=== PATIENT | male | born 1965 | race Caucasian/White ===

== ENCOUNTER 2024-06-19 07:54 | Inpatient (IN) | payer OTHER, SELFPAY ==
[2024-06-19] VITALS (17 sets, daily range): BP systolic 123–190; BP diastolic 83–112
--- NOTE | 2024-06-19 05:24 | ED.GENMED ---
History of Present Illness
General
Chief Complaint: Chest Pain
Source: patient, spouse and previous hospital records (Cardiac catheterization April 2019)
Exam Limitations: none
Time Seen by Provider: 06/19/24 05:23
Nursing documentation reviewed up to this point in time: agreed with
History of Present Illness
History of Present Illness:
This is a 58-year-old gentleman with history of paroxysmal atrial fibrillation, hypertension, GERD, benign brain tumor removal 2019, history of thromboembolism's, IVC filter in place and chronically maintained on Eliquis 5 mg twice daily.
He presents after waking at 3 AM with persistent substernal chest pain that radiates mildly to his back. No other associated symptoms, no history of similar episodes in the past. No aggravating or relieving factors.
His primary head knitting machine fixer is Dr. Lott.
Past History
Past History
ED Past Medical History: Arrthythmia (Paroxysmal atrial fibrillation), CAD, GERD, HTN, Hypercholesterolemia and Other (Meningioma removal 2019, thromboemboli chronically maintained on Eliquis; obstructive sleep apnea)
ED Past Surgical History: Cardiac (Cardiac catheterization April 2019. Showing branch vessel occlusive disease in the distal circumflex left-sided posterior descending artery. Nonobstructive LAD disease. Treated medically.) and Other (meningioma
removal 01/27)
Social History
Tobacco: Non-smoker
Alcohol: Occasional
Drug: None
Personal:
Living: with family
Employment: Employed
Family History
Family History: Other (Noncontributory)
Phy Exam
Physical Exam
Physical Exam:
GENERAL: 58-year-old gentleman appears his stated age, awake and alert, pleasant, appears in no acute distress.
EYE: anicteric
NECK: Supple, nontender, no meningismus, no significant adenopathy.
ENT: oral mucosa is moist. TM clear b/l, nares patent.
CARDIAC: Regular rate and rhythm. no murmur.
LUNGS: Clear breath sounds bilaterally, no acute respiratory distress, no wheezes/rales/rhonchi
ABDOMEN: Rotund, soft, nondistended, without focal tenderness, normoactive BS.
NEUROLOGICAL: Alert and oriented x3, no focal neuro deficits.
SKIN: Warm and dry, normal color, skin intact. No rash.
MUSCULOSKELETAL: No C/C/E. peripheral pulses are full and equal b/l. No palpable tenderness.
PSYCH: Normal and appropriate interaction.
Scores
Heart Score for Chest Pain Patients
STEMI patient?: Yes
Course
Orders/Labs/Results
Orders:
Orders
06/19/24 05:04
Electrocardiogram (*1) Urgent
Reason for Study: Chest Pain
06/19/24 05:05
EKG- Treatment ONCE
06/19/24 05:22
CMP [Comprehensive Metabolic Panel] Urgent
Complete Blood Count/With Diff Urgent
Troponin I Urgent
06/19/24 05:39
Electrocardiogram (*1) Urgent
Reason for Study: Chest Pain
EKG- Treatment ONCE
06/19/24 05:41
Fentanyl Citrate/Pf [Sublimaze] 100 mcg .ROUTE .STK-MED ONE
Heparin 10,000 units .ROUTE .STK-MED ONE
Heparin 1000 Units/500 ml [Heparin] 1,000 units in 500 ml .ROUTE .STK-MED
Heparin Sodium,Porcine/Ns/Pf [Heparin 2000 Units/1000 ml] 2,000 unit in 1,000 ml .ROUTE .STK-MED
Lidocaine HCl/Pf [Xylocaine-Mpf 1% Vial] 50 mg .ROUTE .STK-MED ONE
Midazolam HCl [Versed] 2 mg .ROUTE .STK-MED ONE
Nitroglycerin [Tridil] 1,500 mcg .ROUTE .STK-MED ONE
Verapamil Injectable [Isoptin/Verapamil Injection] 5 mg .ROUTE .STK-MED ONE
06/19/24 05:42
PT/INR [Prothrombin Time] Urgent
06/19/24 05:56
Nitroglycerin [Tridil] 1,500 mcg .ROUTE .STK-MED ONE
06/19/24 06:00
Aspirin Chewable [Low Strength Aspirin] 324 mg .ROUTE .STK-MED ONE
Heparin 5,000 units .ROUTE .STK-MED ONE
Ticagrelor [Brilinta] 180 mg .ROUTE .STK-MED ONE
Abnormal Lab Results
06/19/24 06/19/24
05:22 05:42
Absolute Monos (auto) 0.7 H 10^3/uL
(0.1-0.6)
Monocytes % 9.4 H %
(1.7-9.3)
PT 15.2 H Sec
(11.4-14.6)
Glucose 118 H mg/dl
(70-99)
Troponin I 0.171 H* ng/ml
06/19/24 05:22
06/19/24 05:22
Vital Signs
Initial and Last Documented VS:
Initial Vital Signs
Pulse Resp BP Pulse Ox
66 24 190/112 97
06/19/24 05:17 06/19/24 05:17 06/19/24 05:17 06/19/24 05:17
Last Documented Vital Signs
Pulse Resp BP Pulse Ox
46 16 123/83 96
06/19/24 05:45 06/19/24 05:45 06/19/24 05:37 06/19/24 05:45
MDM/Problems Addressed
Differential Diagnosis Includes:
Patient presents with chest pain, EKG shows STEMI, acute inferior wall FL with mild ST segment elevation inferiorly with mild reciprocal depression in V2. STEMI alert activated promptly after EKG obtained.
Standard STEMI alert treatment initiated including 324 mg chewable aspirin, 180 mg Brilinta�chewed, 5000 units IV heparin.
Sublingual nitroglycerin with moderate improvement in chest pain.
Patient noted to be significantly hypertensive. Hypertension improving with nitroglycerin.
Awaiting Territory Sales Manager Medical arrival.
Labs are pending.
Chronic conditions affecting care: HTN, CAD and Arrhythmia
Acute Exacerbation and/or Progression of Chronic Illness: CAD
*Pulse Oximetry
Patient hypoxic: no
*EKG
Interpreted by ED Provider?: Yes
Interpretation: abnormal
Comparison EKG: changes noted (ST segment elevation inferiorly new compared to previous EKG December 2020)
Rate: bradycardiac
Rhythm: sinus
[place]: left axis deviation
Interval: normal interval
QRS Pattern: normal QRS
Ischemia: ST elevation (Inferior ST segment elevation consistent with STEMI/inferior wall FL)
*Welding Systems And Equipment Repairer Interpretation
Rate: bradycardiac
Rhythm: sinus
*Critical Care Note
Total Time (30-74mins, 75-104mins- exclusive of procedures): 30
comment:
Critical care statement: A total of 30 minutes of critical care time was provided for this patient. This includes management of unstable vital signs, evaluation of the patient at bedside, reviewing the patient's pertinent medical records, discussion
with consultants, review of old EKGs and review of pertinent medical records. This time with separate from time utilized to perform the aforementioned documented procedures
Update Note
Update Note:
Patient is chest pain free after 2 sublingual nitroglycerin.
Hypertension Has normalized. BP currently 123/83.
Repeat EKG shows resolution of ST segment elevation inferiorly.
Interventionalist at bedside, will proceed to Territory Sales Manager Medical.
ED Attending Note
-
Portions of this chart may have been created with voice recognition software.� Occasional wrong word or��sound alike� substitutions may have occurred due to the inherent limitations of voice recognition software.
Discharge Plan
Departure
Patient Disposition: Admit
Date of Disposition: 06/19/24
Time of Disposition: 05:34
Admit to: crime laboratory analyst
Admit to doctor: Kit
Presentation/result/management discussed w/ accepting MD/DO: cardiology
Condition: Serious
Discharge Problem:
ST elevation (STEMI) myocardial infarction
Interventions
Interventions:
*Risk Screen - Suicide Last Done: 06/19/24 05:08
*General Assessment Last Done: 06/19/24 05:31
*Neglect/Abuse Screening Last Done: 06/19/24 05:08
*ED- Fall Risk Assessment Last Done: 06/19/24 05:31
*ED COVID-19 Vaccine History Last Done: 06/19/24 05:31
*Nursing Disposition Last Done: 06/19/24 05:48
ED- Cardiac Assessment Last Done: 06/19/24 05:32
Discharge Date and Time
Discharge Date/Time: 06/19/24 05:45
[2024-06-19 05:31] LABS: % Basophils 0.9 % (0-2); % Eosinophils 2.6 % (0-6); % Immature Granulocytes 0.4 % (0-0.5); % Lymphocytes 24.8 % (20.5-51.1); % Monocytes 9.4 % (1.7-9.3); % Neutrophils 61.9 % (42.2-75.2); Absolute Basophils 0.1 10^3/uL (0-0.2); Absolute Eosinophils 0.2 10^3/uL (0-0.7); Absolute Lymphocytes 1.9 10^3/uL (1.2-3.4); Absolute Monocytes 0.7 10^3/uL (0.1-0.6); Absolute Neutrophils 4.7 10^3/uL (1.4-6.5); Hematocrit 44.9 % (39.0-52.0); Hemoglobin 15.4 g/dL (13.0-18.0); Mean Corp Hgb Conc. 34.3 g/dL (33.0-37.0); Mean Corpuscular Hgb 28.9 pg (27.0-31.0); Mean Corpuscular Volume 84.4 fL (80.0-94.0); Mean Platelet Volume 9.7 fL (7.4-10.4); Nucleated Red Blood Cells % 0 % (-); Platelet Count 231 10^3/uL (130-400); Red Blood Cell Count 5.32 10^6/uL (4.70-6.10); Red Cell Dist. Width 14.3 % (11.5-14.5); White Blood Cell Count 7.6 10^3/uL (4.8-10.8)
[2024-06-19 06:00] LABS: ALT (SGPT) 18 U/L (0-50); AST (SGOT) 29 U/L (17-59); Albumin 4.6 g/dl (3.5-5.0); Alkaline Phosphatase 47 U/L (38-126); Blood Urea Nitrogen 16 mg/dl (9-20); Calcium 9.7 mg/dl (8.4-10.2); Carbon Dioxide 26 mmol/L (22-30); Chloride 103 mmol/L (98-107); Glucose 118 mg/dl (70-99); Potassium 3.8 mmol/L (3.5-5.1); Sodium 142 mmol/L (135-145); Total Bilirubin 0.9 mg/dl (0.2-1.3); Total Protein 8.1 g/dl (6.3-8.2); eGFR > 60.00
[2024-06-19 06:05] LABS: INR 1.17; PT 15.2 Sec (11.4-14.6)
[2024-06-19 06:15] LABS: Troponin I 0.171 ng/ml
--- NOTE | 2024-06-19 08:24 | PTCARENOTE ---
Received patient from the medical lab tech instructor after LHC. Radial band in place right wrist with pulse ox of 98%. SB on the monitor, with HR in the 40's. Patient denies any chest pain or sob. Monitoring VS, call cowan in reach, reviewed post cath orders. at
the bedside.
[2024-06-19] MEDS: KCL 20 MEQ PO (09:13)
[2024-06-19] MEDS: BENICAR 40 MG PO (09:13)
[2024-06-19] MEDS: INSPRA 25 MG PO (09:14)
[2024-06-19] MEDS: NSS 1000 IV (09:20)
--- NOTE | 2024-06-19 11:12 | ITS.CL.PN ---
Spaghetti Machine Operator - Procedure Note
Procedure
Procedure Note:
CARDIAC CATHETERIZATION REPORT
Date of Procedure: 06/19/2024
Referring: Dr. Ofelia Ramirez DO
Indication: Inferior STEMI
PROCEDURE(S)
1. coronary angiography
2. POBA of the OM4
3. Attempted PCI with MAITE for acute AK to OM4
ACCESS: 6F right radial artery (closure: radial band)
CATHETERS
1. 6F AL1
2. 6F JL5
3. 6F EBU 4.5 guide
MODERATE SEDATION: 60 minutes of moderate sedation was utilized. An independent medical device engineer was present to assist with and help manage the patient's level of consciousness and physiologic status.
CORONARY ANGIOGRAPHY
Dominance: Left dominant.
LM: Large with mild disease.
LAD: Large vessel giving rise to a small D1, medium caliber D2, and small D3. There is diffuse moderate disease in the proximal vessel as well as a tubular 60 to 70% stenosis in the mid vessel.
LCx: Large vessel giving rise to a large OM1, large OM2, medium caliber OM3, and small OM4. There is diffuse mild to moderate disease as well as a severe lesion leading into the ostium of OM4/LPDA with dye staining suggesting this to be the culprit
for the patient's presentation.
RCA: Small nondominant vessel with diffuse mild disease proximally.
PCI with balloon angioplasty to OM4
Additional heparin was given to achieve ACT greater than 300. A Runthrough wire was advanced to the distal OM4. With the aid of a 6 Serbian Guideliner, initial balloon angioplasty was performed with a 2.0 x 12 mm semi compliant balloon followed by
2.5 x 12 mm semi compliant balloon. A 2.5x18 mm MAITE would not be advanced past the lesion despite aggressive deep positioning of the guideliner. A 2.25x12 mm NC balloon was advanced and despite aggressive guide liner positioning also would not
advance past the lesion. At this point, the patient remained chest pain free, as he had been since receiving nitroglycerine in the ED. Given the patient's lack of chest pain, the small territory involved, essentially stable vessel appearance at the
culprit site compared to 5 years prior, and TIMI3 flow on angiography after POBA, the decision was made to stop further attempts at stent delivery as to avoid possible iatrogenic injury with aggressive guide liner positioning and continue medical
management for ACS. The wire and guide were removed and a TR band placed.
RADIATION: dose 2139 mGy; DAP 183 Gy*cm2; fluoroscopy time 27.1 min
CONCLUSIONS
1. Coronary artery disease as described with culprit severe stenosis of the OM4/LPDA and progressive non-culprit disease in the LAD
1. POBA of the OM4/LPDA for inferior STEMI with holiness of TIMI3 flow
2. Aborted PCI with MAITE to OM4/LPDA owing to difficulty in delivering stent
RECOMMENDATIONS
1. Transition to ASA/Plavix with Plavix load tomorrow morning. Hold any additional ticagrelor.
2. Continue heparin, hold apixaban for now.
3. As discussed with Dr. Jb Lott (primary unishear operator), plan for possible re-attempt PCI to OM4 +/- LAD PCI on 06/21.
4. Hold beta ananya for now given bradycardia, reintroduce other home cardiac meds as tolerated
5. High intensity statin for goal LDL<55 and aggressive risk factor modificaiton
6. Cardiac rehab as outpatient
Copy to: Dr. Jb Lott MD (unishear operator)
Signed: Piyush Pantoja MD, PhD
--- NOTE | 2024-06-19 11:18 | HPS.HSE ---
Family Physician
-
PCP: Anton Brooks MD
CDY: Jeffery Lott MD
Chief Complaint
-
chest pain
History of Present Illness
58 y/o, PMH sig for CAD, prior cath 2019 with 80% prox LPDA and 80% distal LAD disease that was managed with medical therapy. Also with PAF on eliquis, HTN, GERD, severe SHAYY/CPAP, prior PE w/IVC filter, obesity, benign brain tumor removal (01/2020)
with subsequent XRT.
Presented to ER after waking at 3AM with persistent SSCP radiating to back, no dyspnea/palpitation/nausea. Initial EKG with inferior ST elevations. STEMI alert called. Given SL NTG, 324mg aspirin, 180mg brilinta and 5000u heparin. BP
significantly elevated on arrival 190/110s, improved with SL NTG. Transferred to earth science laboratory technician urgently.
Medical History
Past Medical History
Past Medical History: Reports Arrhythmia (Paroxysmal AFib), CAD (80% prox LPDA and 80% distal LAD (medical management)), Cancer (Benign intracranial meningioma, s/p surgery (2019) and XRT (2020)), GERD, HTN and Hypercholesterolemia (statin
intolerant)
Additional Past Medical History:
Severe sleep apnea/CPAP, Pulmonary embolism, s/p IVC filter, obesity
Past Surgical History: Reports Brain (Tumor removal (2019))
Additional Past Surgical History:
Bilateral cateract extraction
Social History
Tobacco: Non-smoker
Alcohol: Occasional
Drug: None
Personal:
Living: With Family
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
Family History
Family History: CAD, Cancer (Colon), Diabetes, Hypertension and Other (CVA, HLD)
Allergies / Home Medications
Allergies reflects when Allergies were last updated in [facility].
Home Medications with original date entered in [facility]
Allergy/Medication List:
Allergies
Allergy/AdvReac Type Severity Reaction Status Date / Time
No Known Allergies Allergy Verified 06/19/24 05:17
Home Medications
�Medication �Instructions �Recorded
bimatoprost 0.01 % eye drops 1 drp BOTH EYES DAILY 04/11/19
([place])
hydrochlorothiazide 25 mg tablet 25 mg PO DAILY 04/11/19
olmesartan 40 mg tablet 40 mg PO DAILY 04/11/19
tadalafil 10 mg tablet 10 mg PO DAILYPRN PRN ED 04/11/19
apixaban 5 mg tablet 5 mg PO BID 06/19/24
eplerenone 25 mg tablet 25 mg PO DAILY 06/19/24
latanoprostene bunod 0.024 % eye 1 drp BOTH EYES DAILY 06/19/24
drops
nebivolol 5 mg tablet 5 mg PO DAILY 06/19/24
Review of Systems
-
Unable to obtain full review of systems at this time due to: Acuity (Urgently brought to earth science laboratory technician)
A 12 point ROS was completed and negative except as noted: Yes
Cardiac: Reports Chest Pain
Physical Exam
Vital Signs
Vital Signs
Temp Pulse Resp BP Pulse Ox
97.8 F 40 16 133/90 96
06/19/24 11:11 06/19/24 09:15 06/19/24 11:11 06/19/24 09:15 06/19/24 11:11
Physical Exam
General: Other (deferred d/t urgent nature of cath)
Laboratory Results
-
06/19/24 05:22
06/19/24 05:22
Laboratory Results
PT 15.2 Sec (11.4-14.6) H 06/19/24 05:42
INR 1.17 06/19/24 05:42
Total Bilirubin 0.9 mg/dl (0.2-1.3) 06/19/24 05:22
AST 29 U/L (17-59) 06/19/24 05:22
ALT 18 U/L (0-50) 06/19/24 05:22
Alkaline Phosphatase 47 U/L (38-126) 06/19/24 05:22
Troponin I 0.171 ng/ml H* 06/19/24 05:22
Data Reviewed
-
Medical Tests (Nuc Med, Echo, EKG etc): Image Personally Visualized and interpreted, Report Reviewed by me and Discussed with Physician
Lab Data: Labs Reviewed by me
Old Records: Reviewed
Impression/Plan
-
PCP: Anton Brooks MD
CDY: Jeffery Lott MD
58 y/o, PMH sig for CAD, prior cath 2019 with 80% prox LPDA and 80% distal LAD disease that was managed with medical therapy. Also with PAF on eliquis, HTN, GERD, severe SHAYY/CPAP, prior PE w/IVC filter, obesity, benign brain tumor removal (01/2020)
with subsequent XRT.
Presented to ER after waking at 3AM with persistent SSCP radiating to back, no dyspnea/palpitation/nausea. Initial EKG with inferior ST elevations. STEMI alert called. Given SL NTG, 324mg aspirin, 180mg brilinta and 5000u heparin. BP
significantly elevated on arrival 190/110s, improved with SL NTG. Transferred to earth science laboratory technician urgently.
C- radial access
tubular 60-70% mid LAD
severe ostial OM4/LPDA- s/p angioplasty only, aborted stent d/t difficulty with stent delivery
IMPRESSION/PLAN:
Acute inferior STEMI
this is a direct threat to life
s/p angioplasty only to distal OM4/LPDA
residual CAD to distal LAD- for staged iFR +/- PCI to LAD/poss OM4 this admission
brilinta load given- changing to plavix in AM with 600mg load and 75mg daily thereafter
heparin gtt starting today- will maintain until staged cath later this week
troponin 0.171- will trend to peak
echo today
bradycardia 40s with 1st AVB- will monitor tele and hold on BB for now
continue olmesartan 40/d- hold for SBP<90
cardiac rehab consult
followup with Dr. Lott at discharge
will monitor on tele for 48 hours
HLD, statin intolerant- myalgia/joint stiffness
will check lipid profile
try low dose crestor 5mg/d and t/c adding zetia
may need PCSK9 if does not tolerate statin at all
HTN- improved since arrival
hold off on hctz for now
will continue to monitor
PAF- [id number]
Heparin gtt for now
resume eliquis when stable
consider 1 week triple therapy w/asa, plavix, eliquis, then eliquis/plavix alone
GERD- add PPI
Severe SHAYY/CPAP- continue CPAP while here- tolerates well
Prior PE/IVC filter- on OAC
Benign brain tumor, s/p removal and XRT (2019)- stable
Obesity- weight loss encouraged
[2024-06-19 12:09] LABS: Troponin I 0.759 ng/ml
[2024-06-19] MEDS: HEPARIN 25000 UNITS/250 ML IV (13:32)
--- NOTE | 2024-06-19 14:10 | PTCARENOTE ---
Radial band is off from right wrist, dressing is dry and intact. IV heparin started as ordered. Patient is resting comfortably, SR/SB on the monitor, call cowan in reach.
--- NOTE | 2024-06-19 14:21 | CM ---
Chart reviewed. Patient is independent of ADLS, lives with his in a 2 STH, 1 SOSA, 0 DME. Plan is for the patient to go home. CM to follow
--- NOTE | 2024-06-19 14:24 | CM ---
Pricing on Brilinta through the patients [employer] prescription plan, ID# [id number], ph# [phone] is $132.
Looks like patient was placed on Plavix.
[2024-06-19 15:00] LABS: Glycohemoglobin (HgbA1c) 5.6 % (4.0-5.6)
[2024-06-19] MEDS: CRESTOR 5 MG PO (18:03)
[2024-06-19] MEDS: TYLENOL 650 MG PO (19:59)
[2024-06-19] MEDS: APRESOLINE 5 MG IV (22:41)
--- NOTE | 2024-06-19 23:36 | PTCARENOTE ---
Pt rec'd at change of shift with family at bedside. No c/o cp or sob. right radial site with DDI. B/P at HS elevated. Spoke with cardiac PA order for Hydralazine 5 mg ordered and given.
[2024-06-20] VITALS (11 sets, daily range): BP systolic 112–158; BP diastolic 86–98
[2024-06-20 01:40] LABS: Hematocrit 39.7 % (39.0-52.0); Hemoglobin 13.8 g/dL (13.0-18.0); Mean Corp Hgb Conc. 34.8 g/dL (33.0-37.0); Mean Corpuscular Hgb 28.8 pg (27.0-31.0); Mean Corpuscular Volume 82.9 fL (80.0-94.0); Mean Platelet Volume 9.3 fL (7.4-10.4); Platelet Count 201 10^3/uL (130-400); Red Blood Cell Count 4.79 10^6/uL (4.70-6.10); Red Cell Dist. Width 14.2 % (11.5-14.5); White Blood Cell Count 7.7 10^3/uL (4.8-10.8)
[2024-06-20 01:46] LABS: APTT 48.8 Sec (23.4-35.0)
[2024-06-20 02:05] LABS: Blood Urea Nitrogen 18 mg/dl (9-20); Calcium 9.1 mg/dl (8.4-10.2); Carbon Dioxide 21 mmol/L (22-30); Chloride 111 mmol/L (98-107); Glucose 104 mg/dl (70-99); HDL Cholesterol 36 mg/dl; LDL Cholesterol, Calculated 143 mg/dl; Magnesium 1.8 mg/dl (1.6-2.3); Potassium 3.7 mmol/L (3.5-5.1); Sodium 138 mmol/L (135-145); Total Cholesterol 207 mg/dl (50-199); Triglyceride 142 mg/dl (10-149); Very Low Density Lipoprotein 28 mg/dl (0-30); eGFR > 60.00
[2024-06-20] MEDS: LOW STRENGTH ASPIRIN 81 MG PO (07:34)
[2024-06-20] MEDS: INSPRA 25 MG PO (07:34)
[2024-06-20] MEDS: BENICAR 40 MG PO (07:34)
[2024-06-20] MEDS: PLAVIX 600 MG PO (08:41)
[2024-06-20] MEDS: HEPARIN 25000 UNITS/250 ML IV ×2 (08:41→23:25)
[2024-06-20 09:36] LABS: APTT 42.7 Sec (23.4-35.0)
--- NOTE | 2024-06-20 09:56 | W.PN.CARDCBS ---
Today's Communication / Plan
-
Plan for bring back to lab on Wed with Jb
DAPT, ASA/Plavix, continue heparin drip, will resume Eliquis when able
Impression / Plan
-
PCP: Anton Brooks MD
CDY: Jeffery Lott MD
58 y/o, PMH sig for CAD, prior cath 2019 with 80% prox LPDA and 80% distal LAD disease that was managed with medical therapy. Also with PAF on eliquis, HTN, GERD, severe SHAYY/CPAP, prior PE w/IVC filter, obesity, benign brain tumor removal (01/2020)
with subsequent XRT.
Presented to ER after waking at 3AM with persistent SSCP radiating to back, no dyspnea/palpitation/nausea. Initial EKG with inferior ST elevations. STEMI alert called. Given SL NTG, 324mg aspirin, 180mg brilinta and 5000u heparin. BP
significantly elevated on arrival 190/110s, improved with SL NTG. Transferred to laborer orchard urgently.
C- radial access
tubular 60-70% mid LAD
severe ostial OM4/LPDA- s/p angioplasty only, aborted stent d/t difficulty with stent delivery
IMPRESSION/PLAN:
Acute inferior STEMI
this is a direct threat to life
s/p angioplasty only to distal OM4/LPDA
residual CAD to distal LAD- for staged iFR +/- PCI to LAD/poss OM4 this admission
brilinta load given- changing to plavix in AM with 600mg load and 75mg daily thereafter
heparin gtt starting today- will maintain until staged cath planned for Wed with Dr. Lott
No further chest pain
troponin peaked at 1.5
echo NL EF with no WMA, mild-mod MR
bradycardia 40s with 1st AVB- continue to hold on BB for now
continue olmesartan 40/d- hold for SBP<90
cardiac rehab consult
followup with Dr. Lott at discharge
HLD, statin intolerant- myalgia/joint stiffness
will check lipid profile
try low dose crestor 5mg/d and t/c adding zetia
may need PCSK9 if does not tolerate statin at all
HTN- improved since arrival
hold off on hctz for now
will continue to monitor
PAF- [id number]
Heparin gtt for now
resume eliquis when stable
consider 1 week triple therapy w/asa, plavix, eliquis, then eliquis/plavix alone
GERD- add PPI
Severe SHAYY/CPAP- continue CPAP while here- tolerates well
Prior PE/IVC filter- on OAC
Benign brain tumor, s/p removal and XRT (2019)- stable
Obesity- weight loss encouraged
Progress Note - [employer]er
Subjective
Date of Service: June 20, 2024
denies cp, sob
Objective
Labs:
06/20/24 01:27
06/20/24 01:27
Labs
Hgb 13.8 g/dL (13.0-18.0) 06/20/24 01:27
Hct 39.7 % (39.0-52.0) 06/20/24 01:27
Plt Count 201 10^3/uL (130-400) 06/20/24 01:27
PT 15.2 Sec (11.4-14.6) H 06/19/24 05:42
INR 1.17 06/19/24 05:42
APTT 42.7 Sec (23.4-35.0) H 06/20/24 09:07
Sodium 138 mmol/L (135-145) 06/20/24 01:27
Potassium 3.7 mmol/L (3.5-5.1) 06/20/24 01:27
BUN 18 mg/dl (9-20) 06/20/24 01:27
Creatinine 1.0 mg/dL (0.7-1.3) 06/20/24 01:27
Glucose 104 mg/dl (70-99) H 06/20/24 01:27
Troponins
06/19/24 06/19/24 06/19/24
05:22 11:19 18:13
Troponin I 0.171 H* 0.759 H* D 1.500 H* D
06/20/24 06/20/24
01:27 09:07
Troponin I 1.460 H* 1.160 H*
Vital Signs and I&O:
Vital Signs
Temp Pulse Resp BP Pulse Ox
98.4 F 60 18 149/89 96
06/20/24 07:38 06/20/24 05:45 06/20/24 07:38 06/20/24 05:28 06/20/24 07:38
Vital Signs
Temp Pulse Resp BP Pulse Ox
98.4 F 60 18 149/89 96
06/20/24 07:38 06/20/24 05:45 06/20/24 07:38 06/20/24 05:28 06/20/24 07:38
Intake & Output
06/18/24 06/19/24 06/20/24 06/21/24
06:59 06:59 06:59 06:59
Intake Total 780 / 780
Balance 780 / 780
Physical Exam
Physical Exam
NAD, AOX3
S1, S2, RRR
CTAB, non labored, no wheeze
SNTND Bsx4
R rad site c/d/i no HT, good pulse
--- NOTE | 2024-06-20 12:02 | CM ---
Chart reviewed. Patient is independent of ADLS, lives with his in a 2 STH, 1 SOSA, 0 DME. Plan is for the patient to return home. CM to follow
[2024-06-20 17:08] LABS: APTT 66.1 Sec (23.4-35.0)
[2024-06-20] MEDS: CRESTOR 5 MG PO (17:43)
--- NOTE | 2024-06-20 17:58 | PTCARENOTE ---
Assumed care at 0700. Patient denies shortness of breath or chest pain. Heparin gtt per protocol. NSR, BP 132/92. Right radial dressing removed. Call cowan in reach
--- NOTE | 2024-06-20 21:02 | PTCARENOTE ---
Patient received at change of shift resting in the bed. Right radial site open to air with ecchymosis. Radial pulse palpable. Patient denies chest pain, offers no specific complaints at this time. Heparin gtt infusing at 1700units/hr. Sinus rhythm
on telemetry. Oxygen saturation 94% on room air. Plan of care discussed. Call cowan within reach. Care ongoing.
[2024-06-21] VITALS (16 sets, daily range): BP systolic 105–166; BP diastolic 71–105
[2024-06-21] LABS: APTT 68.1 Sec (23.4-35.0)
[2024-06-21 07:13] LABS: APTT 103.5 Sec (23.4-35.0)
[2024-06-21 07:18] LABS: Hematocrit 39.5 % (39.0-52.0); Hemoglobin 13.7 g/dL (13.0-18.0); Mean Corp Hgb Conc. 34.7 g/dL (33.0-37.0); Mean Corpuscular Hgb 28.9 pg (27.0-31.0); Mean Corpuscular Volume 83.3 fL (80.0-94.0); Mean Platelet Volume 9.6 fL (7.4-10.4); Platelet Count 180 10^3/uL (130-400); Red Blood Cell Count 4.74 10^6/uL (4.70-6.10); Red Cell Dist. Width 14.1 % (11.5-14.5); White Blood Cell Count 6.1 10^3/uL (4.8-10.8)
[2024-06-21] MEDS: PROTONIX 40 MG PO (09:19)
[2024-06-21] MEDS: PLAVIX 75 MG PO (09:19)
[2024-06-21] MEDS: BENICAR 40 MG PO (09:19)
[2024-06-21] MEDS: INSPRA 25 MG PO (09:19)
[2024-06-21] MEDS: LOW STRENGTH ASPIRIN 81 MG PO (09:19)
[2024-06-21 09:22] LABS: Blood Urea Nitrogen 20 mg/dl (9-20); Carbon Dioxide 20 mmol/L (22-30); Chloride 109 mmol/L (98-107); Glucose 103 mg/dl (70-99); Sodium 137 mmol/L (135-145); eGFR > 60.00
--- NOTE | 2024-06-21 10:15 | W.PN.CARDCBS ---
Addendum entered and electronically signed by Navarro Lema MD 06/21/24 11:21:
I saw and examined the patient.
The Pile Driving Superintendent's note was reviewed and I agree with the note.
Comment: Briefly, 58-year-old man past medical history of coronary artery disease presenting with substernal chest pain found to have acute inferior injury pattern on ECG and taken emergently for cardiac catheterization. Culprit vessel was thought
to be an obtuse marginal branch which was treated with POBA.
Patient is resting comfortably this morning in the IVU and has not had any subsequent chest discomfort
Maintaining sinus rhythm on telemetry
No evidence of decompensated heart failure on exam
Echo with preserved LV function and no high-grade valve disease
Continue aspirin/Plavix
Tentative plan for transition from heparin back to Eliquis when able given history of paroxysmal A-fib
Started on low-dose rosuvastatin due to history of statin intolerance which he seems to be tolerating; would continue here and uptitrate as an outpatient
Beta-ananya was not started due to bradycardia
Spoke with patient's primary formation fracturing operator, Dr. Lott, and tentative plan is for PCI of the OM as well as the distal LAD later today
Original Note:
Today's Communication / Plan
-
For staged intervention today w/ Dr. Lott
Continue heparin, aspirin, plavix for now
Eventually transition to Eliquis, aspirin, plavix
Impression / Plan
-
PCP: Anton Brooks MD
CDY: Jeffery Lott MD
IMPRESSION:
Presented with CP
Acute inferior STEMI
CAD
80% proximal LPDA and 80% distal LAD by cath, managed medically 04/11/2019
tubular 60-70% stenosis of mid LAD, severe ostial OM4/LPDA s/p angioplasty only 06/19/2024
Paroxysmal atrial fibrillation
Chronic Eliquis anticoagulation
HTN
HLD
h/o statin intolerance
SHAYY on CPAP
GERD
h/o PE/DVT s/p IVC filter
Intracranial meningioma s/p removal and XRT 2019
[facility] 06/19/2024: radial access, tubular 60-70% mid LAD, severe ostial OM4/LPDA- s/p angioplasty only, aborted stent d/t difficulty with stent delivery
Echo 06/19/2024: EF 65-70%, mod cLVH, stage III diastolic dysfunction, mild to mod MR, mild TR, estimated PAP 33 mmHg
Plan:
-Presented with sudden onset CP. Admitted w/ acute inferior STEMI. s/p angioplasty alone to OM4/LPDA as above. Troponin peaked at 1.5.
-Continues on heparin gtt, aspirin, plavix.
-Plan is for staged intervention w/ primary formation fracturing operator, Dr. Lott today, 06/21.
-Eventually will transition to triple therapy with Eliquis, plavix, and aspirin.
-Echo 06/19 with preserved EF, mild to moderate MR as above.
-In SR on tele, bradycardia noted. OP nebivolol on hold.
-BP stable, continue current medications.
-LDL 143. h/o statin intolerance. Retrialing low dose crestor 5mg daily. Consider addition on zetia 10mg daily
-If remains intolerant, may consider PCSK9 inhibitor as OP
HPI: 58 y/o, PMH sig for CAD, prior cath 2019 with 80% prox LPDA and 80% distal LAD disease that was managed with medical therapy. Also with PAF on eliquis, HTN, GERD, severe SHAYY/CPAP, prior PE w/IVC filter, obesity, benign brain tumor removal
(01/2020) with subsequent XRT. Presented to ER after waking at 3AM with persistent SSCP radiating to back, no dyspnea/palpitation/nausea. Initial EKG with inferior ST elevations. STEMI alert called. Given SL NTG, 324mg aspirin, 180mg brilinta and
5000u heparin. BP significantly elevated on arrival 190/110s, improved with SL NTG. Transferred to dairy and food laboratory assistant urgently.
Progress Note - Regulatory Consultant
Subjective
Date of Service: June 21, 2024
No further chest pain noted.
Objective
Labs:
06/21/24 06:53
06/21/24 06:53
Labs
Hgb 13.7 g/dL (13.0-18.0) 06/21/24 06:53
Hct 39.5 % (39.0-52.0) 06/21/24 06:53
Plt Count 180 10^3/uL (130-400) 06/21/24 06:53
PT 15.2 Sec (11.4-14.6) H 06/19/24 05:42
INR 1.17 06/19/24 05:42
APTT 103.5 Sec (23.4-35.0) H 06/21/24 06:53
Sodium 137 mmol/L (135-145) 06/21/24 06:53
Potassium 4.0 mmol/L (3.5-5.1) 06/21/24 06:53
BUN 20 mg/dl (9-20) 06/21/24 06:53
Creatinine 1.1 mg/dL (0.7-1.3) 06/21/24 06:53
Glucose 103 mg/dl (70-99) H 06/21/24 06:53
Troponins
06/19/24 06/19/24 06/19/24
05:22 11:19 18:13
Troponin I 0.171 H* 0.759 H* D 1.500 H* D
06/20/24 06/20/24
01:27 09:07
Troponin I 1.460 H* 1.160 H*
Vital Signs and I&O:
Vital Signs
Temp Pulse Resp BP Pulse Ox
98.9 F 131 20 138/96 95
06/21/24 06:46 06/21/24 07:00 06/21/24 06:46 06/21/24 06:46 06/21/24 06:46
Vital Signs
Temp Pulse Resp BP Pulse Ox
98.9 F 131 20 138/96 95
06/21/24 06:46 06/21/24 07:00 06/21/24 06:46 06/21/24 06:46 06/21/24 06:46
Intake & Output
06/19/24 06/20/24 06/21/24 06/22/24
06:59 06:59 06:59 06:59
Intake Total 780 / 780
Balance 780 / 780
Physical Exam
Physical Exam
GEN: No distress, awake, alert, oriented x3
HEENT: supple, anicteric, mmm
LUNGS: CTA b/l, no wheezes/rales
CV: Reg, S1/S2, 1/6 syst murmur
EXT: No clubbing, cyanosis, or edema
NEURO: Gross non-focal
SKIN: Warm, dry, no rash
--- NOTE | 2024-06-21 11:16 | PTCARENOTE ---
pt is AOx3, no complaints of pain or discomfort. NPO for laborer tin can today. SB on tele monitor, VSS. Heparin gtt infusing per protocol. Call cowan within reach.
--- NOTE | 2024-06-21 11:55 | CM ---
Chart reviewed. Patient is waiting to go over to the Skip Hoist Engineer. Patient is independent of ADLS, lives iwth his in a 2 STH, 1 SOSA, 0 DME. Plan is for the patient to return home. CM to follow
[2024-06-21] MEDS: HEPARIN 25000 UNITS/250 ML IV (14:59)
--- NOTE | 2024-06-21 15:45 | PTCARENOTE ---
pt left for clinical laboratory assistant. heparin gtt stopped. at bedside. Report given to clinical laboratory assistant RN.
[2024-06-21] MEDS: ATROPINE 0.1 MG/ML SYRINGE 0.5 MG IV (17:33)
--- NOTE | 2024-06-21 17:38 | PTCARENOTE ---
received pt back from director geophysical laboratory. HR dropping to 38- 40s. Dr Lott at bedside. Pt c/o of 2/10 chest pain. See MAR for medications given. Will continue to monitor.
[2024-06-21] MEDS: NITROSTAT (SUBLINGUAL) 0.4 MG SL (17:44)
[2024-06-21] MEDS: CRESTOR 5 MG PO (18:25)
[2024-06-21] MEDS: TYLENOL 650 MG PO (19:06)
[2024-06-21] MEDS: NSS 1000 IV (19:06)
--- NOTE | 2024-06-21 19:56 | PTCARENOTE ---
Patient received at change of shift resting in the bed. Right femoral site C/D/I, area soft to palpation, pedal pulse palpable. Right radial site ROCÍO, ecchymotic, radial pulse palpable. Patient denies chest pain at this time. Requested acetaminophen
for lower back pain which is chronic for this patient, see APR. SR to SB on telemetry, prolonged QT. Oxygen saturation 94-94% on room air. Bedrest maintained at this time, activity and HOB restrictions discussed with patient who verbalized
understanding. Plan of care discussed. Call cowan within reach. Care ongoing.
--- NOTE | 2024-06-21 20:24 | ITS.CL.CATH ---
Tug Boat Engineer - Catheterization
Cardiac Catheterization
Procedure Report:
LEFT HEART CATHETERIZATION
Date of Procedure: June 21, 2024
Procedures performed:
1: Percutaneous coronary intervention left anterior descending artery with placement of a 3.0 x 30 mm [place] drug-eluting stent
2: Percutaneous coronary invention of the distal circumflex with angioplasty alone using a 2.25 mm balloon
Primary Care Physician: Dr. Anton Brooks
Primary Vitamin Manager: Myself
INDICATION: The patient is a 58-year-old man who presented with acute chest pain on Wednesday and EKG consistent with an inferior STEMI. He went urgently to cardiac catheterization from the emergency room and was found to have progressive LAD
disease as well as dye staining suggesting culprit disease in the distal circumflex. The lesion was crossed and flow was restored with angioplasty alone however a stent could not successfully be delivered at that time. The patient became chest
pain-free and the decision to stop at that time was wisely made. He has been chest pain-free since cath on Wednesday and ruled in for a small event. He was placed on heparin in addition to aspirin and Plavix. He now returns for a repeat
attempt at PCI of the distal circumflex as well as planned intervention of the LAD for progressive obstructive mid LAD disease. I will plan to use a 8 [place] guide in an effort for maximal support and distal stent delivery.
ACCESS: The patient was prepped and draped in usual sterile fashion. A 8 Afghan sheath was placed in the right common femoral artery using the Seldinger over the wire technique. Ultrasound guidance and a micropuncture technique was used.
HEMODYNAMIC FINDINGS (mmHg):
LV(s/d,EDP): Valve not crossed
Ao(s/d,m): 156/87, 114
ANGIOGRAPHIC FINDINGS:
Please refer to full diagnostic study from 06/19/2024.
Percutaneous Coronary Intervention (PCI): I elected to focus on the LAD lesion first. The patient was pretreated with aspirin Plavix. Unfractionated heparin was given. A 8 Afghan XB 4.0 guiding catheter was used to engage the left main. A
Hi-Torque floppy wire was successfully advanced down the LAD. I was surprisingly able to traverse the severe apical diffuse small vessel disease with the wire positioned distally in the wraparound LAD. A 6 Afghan Guideliner was employed in an
effort to minimize contrast and get single-vessel angiography. A 2.5 x 20 mm balloon was used to predilate the mid LAD. That same balloon was used to perform balloon angioplasty alone at 2 mamta at the apical small vessel disease segment. Next a
3.0 x 30 mm [place] drug-eluting stent was deployed in the mid LAD. The stent was postdilated with a 3.0 mm diameter noncompliant balloon inflated to 16 mamta. This was done in a distal and proximal fashion taking care to stay within the stented
margins.
FINAL RESULT: 0% in-stent residual stenosis with outstanding angiographic result and NANETTE-3 flow in all vessels. Of note the apical small vessel disease treated with angioplasty alone had less than 50% residual stenosis.
PCI of the distal circumflex: I then turned my attention to the left circumflex. The Guideliner and wire were pulled back and the wire was advanced into the circumflex. The Hi-Torque floppy wire was successfully advanced across the distal
circumflex lesion into OM-4. With aggressive guide and backup support I was able to deliver a 2.25 x 12 mm balloon to the preocclusive stenosis. Angioplasty was performed which identified a clear nondilated bowel waist in the proximal lesion.
This did not yield at high pressure. A 2.0 x 12 mm noncompliant balloon was inflated at that area repeatedly at 24 mamta for 90 seconds without cracking the circumferential calcium. At this point I chose to stop recognizing that successful
intervention would require rotational atherectomy or possibly shockwave lithotripsy angioplasty. My feeling was given this distal location and a relatively small vessel we would try medical therapy first and only come back for this more complex
intervention if he has symptoms refractory to medical therapy. I abandon the intervention and final angiography showed no significant angiographic change. No flow-limiting dissection.
Fluoroscopy Time (min): 16.5
Radiation Dose (mGy): 1139
DAP (Gy.cm2): 63
Closure device: 8 Afghan Angio-Seal to right common femoral artery. No acute complications.
Complications: None.
ASSESSMENT:
1: Successful PCI of the LAD with angioplasty alone at the apex and placement of a mid LAD drug-eluting stent as described above.
2: Unsuccessful/abandoned PCI of the OM for with angioplasty alone. This was not dilatable despite high-pressure inflation with a noncompliant balloon. If intervention is required he will need plaque modification with rotational atherectomy.
CONCLUSIONS and RECOMMENDATIONS:
1: Routine post drug-eluting stent and post recent NH medical therapy and monitoring. The patient will need Eliquis and Plavix long-term. Will give triple therapy for 1 week. Hold Eliquis tonight given 8 Afghan sheath. If groin looks okay in the
morning will add back Eliquis 5 mg p.o. twice daily.
2: Close clinical follow-up with myself. Enroll in cardiac rehab.
Jeffery Lott M.D.
Copy to: Dr. Anton Brooks
[2024-06-22] VITALS: BP 101/61
[2024-06-22 03:39] VITALS: BP 129/79
[2024-06-22 04:54] LABS: Hemoglobin 13.8 g/dL (13.0-18.0); Mean Corp Hgb Conc. 34.5 g/dL (33.0-37.0); Mean Corpuscular Hgb 28.9 pg (27.0-31.0); Mean Corpuscular Volume 83.7 fL (80.0-94.0); Mean Platelet Volume 9.7 fL (7.4-10.4); Platelet Count 188 10^3/uL (130-400); Red Blood Cell Count 4.78 10^6/uL (4.70-6.10); Red Cell Dist. Width 14.4 % (11.5-14.5); White Blood Cell Count 6.4 10^3/uL (4.8-10.8)
[2024-06-22 05:09] LABS: Blood Urea Nitrogen 19 mg/dl (9-20); Calcium 8.8 mg/dl (8.4-10.2); Carbon Dioxide 20 mmol/L (22-30); Chloride 110 mmol/L (98-107); Glucose 95 mg/dl (70-99); Potassium 4.1 mmol/L (3.5-5.1); Sodium 138 mmol/L (135-145); eGFR > 60.00
[2024-06-22 07:58] LABS: ACT-LR - POC > 397 Seconds (116-155)
[2024-06-22 07:58] LABS: ACT-LR - POC > 397 Seconds (116-155)
[2024-06-22] MEDS: INSPRA 25 MG PO (08:27)
[2024-06-22] MEDS: BENICAR 40 MG PO (08:27)
[2024-06-22] MEDS: PROTONIX 40 MG PO (08:27)
[2024-06-22] MEDS: LOW STRENGTH ASPIRIN 81 MG PO (08:28)
[2024-06-22] MEDS: PLAVIX 75 MG PO (08:28)
[2024-06-22 08:31] VITALS: BP 144/95
--- NOTE | 2024-06-22 09:08 | W.PN.CARDCBS ---
Addendum entered and electronically signed by Mary Grove DO 06/22/24 12:36:
I saw and examined the patient.
The Agronomist's note was reviewed and I agree with the note.
Comment: Patient was seen and examined. Chart/telemetry reviewed. No chest pain or pressure. Ambulating around room.
General: No acute distress, AAOX3
Neck: Negative JVD
Heart: Regular, positive S1/S2, 1/6 SM
Lungs: CTA b/l, negative wheezes/rales/rhonchi
Abd: Positive BS, NT/ND, neg rebound/rigidity/guarding
Ext: No edema. Right femoral site clean dry and intact. Right radial site intact.
Neuro: nonfocal
Plan:
Acute inferior STEMI s/p angioplasty alone to OM4/LPDA 06/19/2024; s/p PCI LAD and POBA LCx 06/21
-Troponin peaked at 1.5.
-Cath sites are stable. Activity restriction reviewed
-Continue DAPT ASA/Plavix at time of discharge with groin check Wednesday at [facility]. Plan to resume Eliquis if groin site remains stable 06/23/24
- Ultimate plan, triple therapy (ASA/Plavix/Eliquis) for 1 week then stop ASA and continue uninterrupted Plavix/Eliquis for at least 1 year.
-Echo 06/19 with preserved EF, mild to moderate MR as above.
- Sinus bradycardia noted on telemetry, Nebivolol discontinued
-BP stable, but will add additional antianginal with Amlodipine 5mg, stop HCTZ continue eplerenone and olmesartan
-LDL 143. h/o statin intolerance. Willing to trial rosuvastatin 20mg, if fails discuss PCSK9i as outpt
-Cardiac rehab c/s
-f/u Dr. Lott
- Stable for discharge
Original Note:
Today's Communication / Plan
-
post PCI
groin check in am if stable resume Eliquis, triples for 1 week ASA/Plavix, then stop ASA
willing to trail rosuvastatin 20mg
home today
Impression / Plan
-
PCP: Anton Brooks MD
CDY: Jeffery Lott MD
IMPRESSION:
Presented with CP
Acute inferior STEMI
CAD
80% proximal LPDA and 80% distal LAD by cath, managed medically 04/11/2019
tubular 60-70% stenosis of mid LAD, severe ostial OM4/LPDA s/p angioplasty only 06/19/2024
PCI LAD with placement of a 3.0 x 30 mm [place] drug-eluting stent, POBA distal circumflex with angioplasty alone using a 2.25 mm balloon 06/21/24 Dr. Lott
Paroxysmal atrial fibrillation
Chronic Eliquis anticoagulation
HTN
HLD
h/o statin intolerance
SHAYY on CPAP
GERD
h/o PE/DVT s/p IVC filter
Intracranial meningioma s/p removal and XRT 2019
[facility] 06/19/2024: radial access, tubular 60-70% mid LAD, severe ostial OM4/LPDA- s/p angioplasty only, aborted stent d/t difficulty with stent delivery
Echo 06/19/2024: EF 65-70%, mod cLVH, stage III diastolic dysfunction, mild to mod MR, mild TR, estimated PAP 33 mmHg
Plan:
-Presented with sudden onset CP. Admitted w/ acute inferior STEMI. s/p angioplasty alone to OM4/LPDA as above. Troponin peaked at 1.5.
-Post PCI LAD and POBA LCx 06/[address] Lott.
-groin stable, tele with SB
- continue DAPT ASA/Plavix, groin check Wednesday if ok resume Eliquis, then triples (ASA/Plavix/Eliquis) for 1 week then stop ASA.
-Echo 06/19 with preserved EF, mild to moderate MR as above.
-With bradycardia will stop nebivolol
-BP stable, but will add additional antianginal with Amlodipine 5mg, stop HCTZ continue eplerenone and olmesartan
-LDL 143. h/o statin intolerance. Willing to trial rosuvastatin 20mg, if fails discuss PCSK9i as outpt
-Cardiac rehab c/s
-f/u Dr. Lott in 2-4 weeks
-Groin check in am
HPI: 58 y/o, PMH sig for CAD, prior cath 2019 with 80% prox LPDA and 80% distal LAD disease that was managed with medical therapy. Also with PAF on eliquis, HTN, GERD, severe SHAYY/CPAP, prior PE w/IVC filter, obesity, benign brain tumor removal
(01/2020) with subsequent XRT. Presented to ER after waking at 3AM with persistent SSCP radiating to back, no dyspnea/palpitation/nausea. Initial EKG with inferior ST elevations. STEMI alert called. Given SL NTG, 324mg aspirin, 180mg brilinta and
5000u heparin. BP significantly elevated on arrival 190/110s, improved with SL NTG. Transferred to cathode ray tube salvage processor urgently.
Progress Note - Sanitation Manager
Subjective
Date of Service: June 22, 2024
no cp, sob
Objective
Labs:
06/22/24 03:48
06/22/24 03:48
Labs
Hgb 13.8 g/dL (13.0-18.0) 06/22/24 03:48
Hct 40.0 % (39.0-52.0) 06/22/24 03:48
Plt Count 188 10^3/uL (130-400) 06/22/24 03:48
PT 15.2 Sec (11.4-14.6) H 06/19/24 05:42
INR 1.17 06/19/24 05:42
APTT 87.0 Sec (23.4-35.0) H 06/21/24 15:16
Sodium 138 mmol/L (135-145) 06/22/24 03:48
Potassium 4.1 mmol/L (3.5-5.1) 06/22/24 03:48
BUN 19 mg/dl (9-20) 06/22/24 03:48
Creatinine 1.1 mg/dL (0.7-1.3) 06/22/24 03:48
Glucose 95 mg/dl (70-99) 06/22/24 03:48
Troponins
06/19/24 06/19/24 06/20/24
11:19 18:13 01:27
Troponin I 0.759 H* D 1.500 H* D 1.460 H*
06/20/24
09:07
Troponin I 1.160 H*
Vital Signs and I&O:
Vital Signs
Temp Pulse Resp BP Pulse Ox
98.7 F 55 20 144/95 95
06/22/24 08:34 06/22/24 08:31 06/22/24 08:34 06/22/24 08:31 06/22/24 08:34
Vital Signs
Temp Pulse Resp BP Pulse Ox
98.7 F 55 20 144/95 95
06/22/24 08:34 06/22/24 08:31 06/22/24 08:34 06/22/24 08:31 06/22/24 08:34
Intake & Output
06/20/24 06/21/24 06/22/24 06/23/24
06:59 06:59 06:59 06:59
Intake Total 780 / 780 800 / 800
Balance 780 / 780 800 / 800
Physical Exam
Physical Exam
NAD< AOX3
S1, S2, RRR
CTAB, non labored, no wheeze
SNTND Bsx4
R fem site c/d/i no HT, soft
[2024-06-22 09:25] VITALS: BMI 31.8
[2024-06-22 10:20] VITALS: BP 135/84
[2024-06-22] MEDS: NORVASC 5 MG PO (10:20)
[2024-06-22 11:33] VITALS: BP 118/79
--- NOTE | 2024-06-22 12:51 | PTCARENOTE ---
Discharge teaching completed. Patient verbalized understanding. IV and telemetry removed. Patient escorted to main lobby in a wheelchair
--- NOTE | 2024-06-22 13:57 | W.DS.TRANS ---
DC Summary - Emergency Room Clinician
-
Discharge Instructions:
Discharge Diagnosis/Procedures STEMI, s/p angioplasty to Obtuse Marginal artery
(06/19)
s/p angioplasty and stent to Left Anterior
Descending artery (06/21)
Diet Low Cholesterol
Driving Restrictions No driving for 24 hours
Other Services Cardiac Rehab
Instructions:
Stand-Alone Forms: DC Instructions- Cath/EP Lab
Changes to Home Medications: Yes
Discharge Medications:
DC Medications w/original date entered in [employer]
bimatoprost 0.01 % eye drops (Lumigan) 1 drp BOTH EYES DAILY Eye Condition 04/11/19
olmesartan 40 mg tablet 40 mg PO DAILY Blood Pressure 04/11/19
tadalafil 10 mg tablet 10 mg PO DAILYPRN PRN ED 04/11/19
apixaban 5 mg tablet 5 mg PO BID Blood Clot Prevention/Tx 06/19/24
eplerenone 25 mg tablet 25 mg PO DAILY Fluid Retention/Swelling 06/19/24
latanoprostene bunod 0.024 % eye drops 1 drp BOTH EYES DAILY Eye Condition 06/19/24
amlodipine 5 mg tablet 5 mg PO DAILY #30 tabs 06/22/24
aspirin 81 mg chewable tablet 81 mg PO DAILY #1 tab 06/22/24
clopidogrel 75 mg tablet 75 mg PO DAILY #90 tabs 06/22/24
rosuvastatin 20 mg tablet 20 mg PO QPM #30 tabs 06/22/24
Home Medication Changes
new to plavix, amlodipine, stopped HCTZ, increased rosuvastatin dose
Pending Results: No
== END 2024-06-22 12:49 | disposition home or self-care (01) | DRG 322 ==
LOC: IVU 07:54
PROVIDERS: Internal Medicine Cardiovascular Disease; Internal Medicine Interventional Cardiology; Nurse Practitioner; ADMITTING PHYSICIAN Student in an Organized Health Care Education/Training Program; ATTENDING PHYSICIAN Internal Medicine Cardiovascular Disease; EMERGENCY PHYSICIAN Emergency Medicine
PROC: 4A023N7 Measurement of Cardiac Sampling and Pressure, Left Heart, Percutaneous Approach (ICD-10-PCS; 2024-06-19)
PROC: 02703ZZ Dilation of Coronary Artery, One Artery, Percutaneous Approach (ICD-10-PCS; 2024-06-19)
PROC: B2111ZZ Fluoroscopy of Multiple Coronary Arteries using Low Osmolar Contrast (ICD-10-PCS; 2024-06-19)
PROC: 5A09357 Assistance with Respiratory Ventilation, Less than 24 Consecutive Hours, Continuous Positive Airway Pressure (ICD-10-PCS; 2024-06-20)
PROC: 027034Z Dilation of Coronary Artery, One Artery with Drug-eluting Intraluminal Device, Percutaneous Approach (ICD-10-PCS; 2024-06-21)
PROC: 02JY3ZZ Inspection of Great Vessel, Percutaneous Approach (ICD-10-PCS; 2024-06-21)
DX: I21.19 ST elevation (STEMI) myocardial infarction involving other coronary artery of inferior wall (principal); I48.0 Paroxysmal atrial fibrillation; I10 Essential (primary) hypertension; E78.00 Pure hypercholesterolemia, unspecified; G47.33 Obstructive sleep apnea (adult) (pediatric); I25.10 Atherosclerotic heart disease of native coronary artery without angina pectoris; E66.9 Obesity, unspecified; K21.9 Gastro-esophageal reflux disease without esophagitis; Z53.09 Procedure and treatment not carried out because of other contraindication; Z79.01 Long term (current) use of anticoagulants; Z86.718 Personal history of other venous thrombosis and embolism; Z86.011 Personal history of benign neoplasm of the brain; Z95.828 Presence of other vascular implants and grafts; Z92.3 Personal history of irradiation; Z86.711 Personal history of pulmonary embolism; Z68.31 Body mass index [BMI] 31.0-31.9, adult; Z83.3 Family history of diabetes mellitus; Z82.49 Family history of ischemic heart disease and other diseases of the circulatory system; Z80.0 Family history of malignant neoplasm of digestive organs; Z82.3 Family history of stroke
CPT/HCPCS: 80048; 80053; 80061; 83036; 83735; 84484; 85025; 85027; 85347; 85610; 85730; 92920; 92941; 93005; 93306; 93454; 99152; 99153; 99291; C1725; C1760; C1769; C1874; C1887; C1894; C9600; Q9967

== ENCOUNTER 2024-08-23 10:24 | Day surgery (SDC) | payer OTHER, SELFPAY ==
[2024-08-10 08:55] VITALS: BMI 33.8
[2024-08-10 09:29] LABS: Hematocrit 38.2 % (39.0-52.0); Hemoglobin 12.9 g/dL (13.0-18.0); Mean Corp Hgb Conc. 33.8 g/dL (33.0-37.0); Mean Corpuscular Volume 84.7 fL (80.0-94.0); Nucleated Red Blood Cells % 0 % (-); Platelet Count 186 10^3/uL (130-400); Red Cell Dist. Width 15.2 % (11.5-14.5)
[2024-08-10 09:38] LABS: INR 1.29; PT 16.6 Sec (11.4-14.6)
[2024-08-10 10:08] LABS: ALT (SGPT) 14 U/L (0-50); AST (SGOT) 20 U/L (17-59); Albumin 4.4 g/dl (3.5-5.0); Alkaline Phosphatase 39 U/L (38-126); Blood Urea Nitrogen 18 mg/dl (9-20); Calcium 9.4 mg/dl (8.4-10.2); Carbon Dioxide 21 mmol/L (22-30); Chloride 106 mmol/L (98-107); Estimated Creatinine Clearance 94 ml/min; Glucose 118 mg/dl (70-99); Magnesium 1.9 mg/dl (1.6-2.3); Potassium 4.2 mmol/L (3.5-5.1); Sodium 137 mmol/L (135-145); Total Protein 7.3 g/dl (6.3-8.2); eGFR > 60.00
[2024-08-23] VITALS (15 sets, daily range): BP systolic 118–140; BP diastolic 79–108
[2024-08-23] MEDS: NSS 500 IV (11:28)
[2024-08-23] MEDS: TYLENOL 1000 MG PO (12:12)
[2024-08-23] MEDS: LASIX 20 MG IV ×2 (14:59→16:46)
--- NOTE | 2024-08-23 15:12 | PTCARENOTE ---
Pt brought to recovery on 12 L SM, WOB easy but shallow. Wet throughout on post. chest auscultation when turned. Lasix 20 MG IV given.
--- NOTE | 2024-08-23 15:39 | ITS.CL.ABL ---
White Sugar Boiler - Ablation
Ablation
Procedure Report:
ELECTROPHYSIOLOGIC STUDY AND POSSIBLE ABLATION
DATE: August 23, 2024
Primary Care Provider: Dr. Anton Brooks
Primary Saw Maker: Dr. Jb Lott
INDICATION:
Symptomatic Atrial Fibrillation.
Paroxysmal
HISTORY: See H and P.
Symptomatic AF, poorly controlled with attempted medical therapy.
More recently he has been noting increased burden of symptomatic atrial fibrillation. Symptoms in atrial fibrillation include palpitations as well as rather extreme exertional fatigue/intolerance.
He also has a history of coronary artery disease with finding of branch occlusive coronary artery disease on coronary angiography April 11, [address] Lott. This included 80% proximal left sided PDA and apical 80% distal LAD for which medical
therapy has been recommended. Additionally he has essential hypertension and obstructive sleep apnea as well as obesity.
Most recently, he was treated for ST segment elevation acute inferior myocardial infarction June 19, 2024 having undergone staged intervention first of obtuse marginal and PDA then LAD.� He was discharged to home on June 22, 2024 and tells me he has
been feeling well ever since with no chest pain or shortness of breath.
Echocardiogram from 09/19/2024 finds normal biventricular size and function with no regional wall motion abnormalities.� Mild to moderate mitral regurgitation.� The left atrium is moderately enlarged, the right atrium is normal sized.
HAS-BLED: 1
Antiplatelet Therapy
CHADSVASc: 2
HTN
Vascular Dz: prior TN
Of note he has been on chronic oral anticoagulation related to prior DVT and PE.
PRESENTING RHYTHM: AF
HISTORY: See H and P.
Symptomatic AF, poorly controlled with attempted medical therapy.
ANTICOAGULATION: Apixaban 5 mg twice daily
'TIME-OUT': called and confirmed.
SEDATION/ANESTHESIA: provided via the anesthesia department using general anesthesia.
PROCEDURE:
Ultrasound Guidance with real-time visualization of needle insertion and vessel patency performed by me for femoral venous Vascular Access.
Under real-time US guidance, the needle was advanced with negative pressure into the vein. The needle was seen entering the vessel lumen with a good return of dark red flow, the syringe was removed, non-pulsatile, dark red blood low was noted and
the wire was passed without difficulty, then the needle was removed. US confirmed the wire was in the vein, not going into an artery,
Images were taken and saved for the patient's permanent record. Imaging findings typical femoral venous anatomy. Direct visualization of needle puncture into the femoral vein was observed and recorded.
Although femoral venous access could be obtained at the right groin, a guidewire could not be advanced into the inferior vena cava.
Venography was then performed finding occlusive disease at the right femoral vein with extensive collaterals from right to left.
Next ultrasound guidance was used to gain entrance at the left femoral vein. Once again guidewires could not be passed deep distally with any ease. Venography was performed at the left femoral venous system finding that the left femoral vein was
entered and there is extensive tortuosity. Ultimately using a variety of guides along Terumo wires were able to pass through the marked tortuosity and entered the inferior vena cava and be advanced superiorly to the superior vena cava. Multiple
attempts were made to pass a variety of different sheaths over the wires but the sheath could not make their way through the marked tortuosities.
At this point the procedure was abandoned.
Hemostasis was obtained
Assessment:
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
RECOMMENDATIONS:
- Observe and consider discharge home later today
- Maintain oral anticoagulation.
- Will move up his office visit with me. At that point we can discuss alternative approach for PVI such as using transesophageal echocardiogram for imaging and performing central venous access with transseptal puncture and left atrial access via
the right internal jugular vein. For this, use of a smaller [place] PFA system such as Affera would be utilized.
- Continue cardiovascular care with Dr. Lott
Copy to:
Dr. Anton Brooks
Dr. Jb Lott
[2024-08-23] MEDS: NORVASC 5 MG PO (16:51)
[2024-08-23] MEDS: BENICAR 40 MG PO (16:55)
== END 2024-08-23 18:08 | disposition home or self-care (01) ==
LOC: CATH 10:24
PROVIDERS: ATTENDING PHYSICIAN Internal Medicine Cardiovascular Disease; FAMILY PHYSICIAN Family Medicine; OTHER PHYSICIAN Internal Medicine Interventional Cardiology
DX: I48.0 Paroxysmal atrial fibrillation (principal); I25.10 Atherosclerotic heart disease of native coronary artery without angina pectoris; I10 Essential (primary) hypertension; Z95.5 Presence of coronary angioplasty implant and graft; E78.5 Hyperlipidemia, unspecified; E66.9 Obesity, unspecified; Z68.33 Body mass index [BMI] 33.0-33.9, adult; G47.33 Obstructive sleep apnea (adult) (pediatric); Z86.718 Personal history of other venous thrombosis and embolism; Z86.711 Personal history of pulmonary embolism; Z79.899 Other long term (current) drug therapy; Z79.02 Long term (current) use of antithrombotics/antiplatelets; Z79.01 Long term (current) use of anticoagulants
CPT/HCPCS: 93620; C1730; C1892; C1769; 36415; 75572; 80053; 83735; 85025; 85610; 86850; 86900; 86901; 93005; C1732; C1760; C1766; C1894; Q9967

== ENCOUNTER 2024-10-11 08:20 | Day surgery (SDC) | payer OTHER, SELFPAY ==
--- NOTE | 2024-10-02 08:29 | HPS.HSE ---
Family Physician
-
Family Physician: Anton Brooks MD
Chief Complaint
-
Paroxysmal atrial fibrillation.
History of Present Illness
The patient is a 58 year old male presenting today for paroxysmal atrial fibrillation. The patient reports a history of palpitations, weakness, fatigue, and shortness of breath all associated with his arrhythmia. They have become more
prevalent of recent. Pharmacological therapy has been limited due to marked bradycardia at baseline. He does report compliance with Eliquis for oral anticoagulation due to a [id number] of 2. Given his significant symptoms, he would like to proceed
with pulmonary vein isolation for more definitive arrhythmia management. He denies any current complaints today such as chest pain, shortness of breath at rest, nausea, vomiting, diarrhea, lightheadedness, dizziness, cough, sore throat, or fever.
Medical History
Past Medical History
Past Medical History: Reports Other
Additional Past Medical History:
1. Paroxysmal atrial fibrillation, oral anticoagulation with Eliquis.
2. Sinus bradycardia, asymptomatic.
3. Hypertension.
4. Hyperlipidemia.
5. Coronary artery disease, status post PCI with drug-eluting stent to mid LAD, 06/2024; OM disease medically treated. On Plavix.
6. Bilateral DVT/pulmonary embolism, provoked, 2019; previous IVC filter retrieved.
7. Pulmonary nodules.
8. Obstructive sleep apnea, CPAP compliant.
9. GERD.
10. Brain meningioma, status post excision 2019.
11. Glaucoma.
12. Erectile dysfunction.
13. Hearing impairment bilaterally.
14. Obesity, BMI 32.6.
Past Surgical History: Reports Other
Additional Past Surgical History:
1. PCI with drug-eluting stent to mid LAD.
2. Meningioma excision.
3. IVC filter placement.
4. IVC filter retrieval.
5. Bilateral cataract extraction.
Social History
Tobacco: Non-smoker
Alcohol: Other (He reports, on average, consuming 1 alcoholic beverage weekly. )
Personal:
Living: Other (He lives in a 2 story home with his spouse and daughter. )
Family History
Family History: Not pertinent
Allergies / Home Medications
Allergy/Medication List:
HOME MEDICATIONS:
1. Amlodipine 5 mg p.o. daily.
2. Eliquis 5 mg p.o. twice a day.
3. Plavix 75 mg p.o. daily.
4. Eplerenone 25 mg p.o. at bedtime.
5. Latanoprostene ophthalmic solution 1 drop bilateral eyes at bedtime.
6. Olmesartan 40 mg p.o. daily.
7. Crestor 20 mg p.o. at bedtime.
8. Tadalafil 10 mg p.o. daily as needed.
9. Balance of Nature 1 capsule p.o. daily.
10. CoQ10 200 mg p.o. at bedtime.
11. Dorzolamide-timolol 1 drop ophthalmic bilateral eyes every 12 hours.
12. Relief factor 2 tablet p.o. daily.
13. Turmeric 2 capsules p.o. daily.
ALLERGIES: No known drug allergies.
Review of Systems
-
A 12 point ROS was completed and negative except as noted: Yes
Physical Exam
Vital Signs
Blood pressure 135/85. Heart rate 54. Respirations 18. Pulse ox 95% on room air.
Height 6 feet, 1 inch. Weight 112 kg. BMI 32.6.
Physical Exam
General: Well Developed, Well Nourished and No Apparent Distress
HEENT: NormoCephalic, Moist mucous membranes and Atraumatic
Respiratory: Clear
Cardiac: Irregular Rhythm
GI: Soft, Non Tender, Non Distended and Other (Obese. )
Musculoskeletal: Normal Gait & Station and Other (Trace sock-line edema bilateral lower extremities. )
Skin: Warm and Dry
Neuro: AO x 3 and Nonfocal/grossly intact
Laboratory Results
-
DIAGNOSTIC STUDIES as of 10/02/2024: White blood cell count 6.7. Hemoglobin 14.1. Platelet count 218,000. PT 17.3. INR 1.39. Sodium 138. Potassium 4.5. BUN 22. Creatinine 1.1. Glucose 109. Calcium 9.4. Magnesium 2.0. AST 31. ALT 21. Albumin 5.0.
Type and screen A positive.
EKG 10/02/2024: Atrial fibrillation with slow ventricular response. Left axis deviation. Minimal voltage criteria for LVH, may be normal variant. Cannot rule out anterior infarct, age undetermined.
Chest CT 08/10/2024: Conventional pulmonary venous anatomy. Of note, there is an ostial branch at the posterior-inferior margin of the RIGHT superior pulmonary vein, representing a right middle lobe accessory vein. In addition, is a superior segment
left lower lobe accessory pulmonary vein, with an atriovenous junction adjacent to the inferior pulmonary venous ostium. The posterior margin of the left atrium has a somewhat unusual configuration with a lobular extension of the posterior wall
towards the left inferior pulmonary vein. No left atrial filling defect/thrombus identified. There are a few tiny pulmonary nodules measuring up to 3.9 mm. Follow-up may be considered in one year if the patient is considered at increased risk -
primary care is aware.
Impression/Plan
-
IMPRESSION/PLAN:
1. Paroxysmal atrial fibrillation: The patient is in need of pulmonary vein isolation with Dr. Adrian River on 10/13/2024. The benefits and risks of the procedure have been explained to the patient. The patient understands these risks and
wishes to proceed. He will not be required to undergo a pre-procedural transesophageal echocardiogram as he has been compliant with his home oral anticoagulation. He is aware to continue his Eliquis uninterrupted prior to his procedure. He will take
no medications the morning of his ablation.
[2024-10-02 09:34] LABS: Hematocrit 43.1 % (39.0-52.0); Hemoglobin 14.1 g/dL (13.0-18.0); Mean Corp Hgb Conc. 32.7 g/dL (33.0-37.0); Mean Corpuscular Volume 85.0 fL (80.0-94.0); Nucleated Red Blood Cells % 0 % (-); Platelet Count 218 10^3/uL (130-400); Red Cell Dist. Width 14.9 % (11.5-14.5)
[2024-10-02 09:44] LABS: INR 1.39; PT 17.3 Sec (11.4-14.6)
[2024-10-02 10:18] LABS: ALT (SGPT) 21 U/L (0-50); AST (SGOT) 31 U/L (17-59); Albumin 5.0 g/dl (3.5-5.0); Alkaline Phosphatase 50 U/L (38-126); Blood Urea Nitrogen 22 mg/dl (9-20); Calcium 9.4 mg/dl (8.4-10.2); Carbon Dioxide 24 mmol/L (22-30); Chloride 103 mmol/L (98-107); Glucose 109 mg/dl (70-99); Magnesium 2.0 mg/dl (1.6-2.3); Potassium 4.5 mmol/L (3.5-5.1); Sodium 138 mmol/L (135-145); Total Protein 8.2 g/dl (6.3-8.2); eGFR > 60.00
[2024-10-02 12:29] VITALS: BMI 32.6
[2024-10-11] VITALS (23 sets, daily range): BP systolic 111–160; BP diastolic 81–108; PULSE 2–73; BMI 32.6
[2024-10-11 14:03] LABS: ACT-LR - POC 326 Seconds (116-155)
[2024-10-11 14:23] LABS: ACT-LR - POC 334 Seconds (116-155)
[2024-10-11 14:58] LABS: ACT-LR - POC > 397 Seconds (116-155)
[2024-10-11 14:58] LABS: ACT-LR - POC > 397 Seconds (116-155)
--- NOTE | 2024-10-11 15:15 | ITS.CL.ABL ---
Health Care Specialist - Ablation
Ablation
Procedure Report:
ELECTROPHYSIOLOGIC STUDY AND POSSIBLE ABLATION
DATE: 10/11/24
Primary Care Provider: Dr Anton Brooks
Primary Insulation Hoseman: Dr Jb Lott
INDICATION:
Symptomatic Atrial Fibrillation.
Persistent
HISTORY: See H and P.
Symptomatic AF, poorly controlled with attempted medical therapy.
He has symptomatic persistent atrial fibrillation and a complex medical history which includes brain cancer with a prolonged hospital stay at time of his resection nearly a decade ago complicated by deep venous thrombosis and pulmonary embolism
having received IVC filter which was subsequently removed.
He was taken to the electrophysiology laboratory August 23, 2024 for planned PVI, however procedure was never performed due to interrupted inferior vena caval access. Although femoral venous access could be obtained at the right groin, a guidewire
could not be advanced into the inferior vena cava. Venography was then performed finding occlusive disease at the right femoral vein with extensive collaterals from right to left. Next ultrasound guidance was used to gain entrance at the left
femoral vein. Once again guidewires could not be passed deep distally with any ease. Venography was performed at the left femoral venous system finding that the left femoral vein was entered and there is extensive tortuosity. Ultimately using a
variety of guides along Terumo wires were able to pass through the marked tortuosity and entered the inferior vena cava and be advanced superiorly to the superior vena cava. Multiple attempts were made to pass a variety of different sheaths over
the wires but the sheath could not make their way through the marked tortuosities. The procedure was then abandoned and there was consideration for ablation from a superior approach. Ultimately it was decided to attempt PVI using superior approach
and he presents today for PVI.
He also has a history of coronary artery disease with finding of branch occlusive coronary artery disease on coronary angiography April 11, [address] Lott. This included 80% proximal left sided PDA and apical 80% distal LAD for which medical
therapy has been recommended. Additionally he has essential hypertension and obstructive sleep apnea as well as obesity.
HAS-BLED: 1
Antiplatelet Therapy
CHADSVASc: 2
HTN
Vascular Dz: prior IA
PRESENTING RHYTHM: AF
HISTORY: See H and P.
Symptomatic AF, poorly controlled with attempted medical therapy.
ANTICOAGULATION: Eliquis 5 mg twice daily
'TIME-OUT': called and confirmed.
SEDATION/ANESTHESIA: provided via the anesthesia department using general anesthesia.
PROCEDURE:
A combination of left upper extremity venography as well as ultrasound was used to guide left axillary/subclavian venous access which was obtained for two 10 [place] sheaths 1 of which was used for the intracardiac echocardiogram the other which was
eventually substituted for the Supracross superior approach transseptal sheath and then eventually for the short Agilis steerable sheath.
Ultrasound was used to guide access to the right internal jugular vein which was used for the duodeca coronary sinus mapping catheter.
A duodecapolar CS catheter was placed within the CS for mapping and pacing.
The intracardiac ultrasound catheter was positioned in the RA for continuous intracardiac ultrasound imaging.
Heparin bolus and infusion to target ACT at 300 -350 seconds was administered. Transseptal puncture was performed. This entailed advancing a sheath with dilator (supracross)into the superior vena cava and withdrawing both (monitoring intracardiac
ultrasound, fluoroscopy and tip pressure) with the tip oriented toward the atrial septum. The fossa ovalis was engaged (indicated by sudden displacement of the sheath tip as well as tenting of the fossa seen on intracardiac ultrasound).
Transseptal puncture was performed using the RF wire targeting a more superior and anterior transseptal puncture. Left atrial catheter position was confirmed by echocardiographic imaging, pressure monitoring (LA mean pressure 20 mm Hg) and
fluoroscopy. The sheath was advanced over the dilator and positioned in the left atrium.
The [employer] multipolar mapping/ablation Sphere-9 catheter was positioned through the transseptal sheath for high density mapping.
Geometry and voltage mapping was performed using the [employer] mapping system for three-dimensional electroanatomical mapping.
Catheter positioning was guided and confirmed using both I.C.E. and fluoroscopy.
High density electroanatomical three-dimensional mapping demonstrated 4 PVs: LSPV, LIPV, RSPV, RIPV.
Ablation strategy included PVI as well as mapping for extra PV contributors to atrial fibrillation which would also be targeted if present.
After accomplishing pulmonary venous isolation, mapping identified additional areas likely to be extra PV contributors to atrial fibrillation. These areas demonstrated patchy low voltage as well as complex fractionated electrograms. These areas can
be sites for the formation of rotors which can drive and maintain atrial fibrillation. These areas are known to be significant contributors to initiation and perpetuation of atrial fibrillation.
Additional energy applications/additional ablation sets targeted extra PV contributors to atrial fibrillation.
Targets for additional PFA ablation included:
LA posterior wall targeted with pulsed electric field energy isolating the posterior wall of the left atrium
After ablation of the posterior wall, additional targets were addressed:
LA inferior floor
The ridge of tissue between the left atrial appendage and the left sided pulmonary veins (Ligament of Jayesh )
These areas were ablated using pulsed electric field energy eliminating the extra PV contributors to atrial fibrillation.
Cardioversion then restored sinus rhythm.
Post ablation mapping finds electrical block at each of the pulmonary veins (LSPV, LIPV, RSPV, RIPV) and the the LA posterior wall as well as the additional lines at the inferior/floor of the LA and the Ligament of Marshal rendering the sites no
longer able to contribute to atrial fibrillation.
I.C.E. :
Pre-Ablation Post-Ablation
LVEF: 55 % 55 %
WMA: none none
Pericardial effusion: none none
LA Pressure 20
COMPLICATIONS:
None
SUMMARY:
Note, electroanatomical voltage mapping demonstrates marked left atrial myopathy with marked overall signal amplitude throughout much of the posterior wall of the left atrium and patchy fractionated electrograms along the anterior quadrants of
the right sided pulmonary veins.
- Mapping and ablation to isolate the PVs resulting in electrical isolation of the pulmonary veins
- Additional AF ablation sets X 3 after PVI (LA posterior wall, Inf/floor of the LA posterior wall, ligament of Jayesh) resulting in elimination of the targeted extra PV contributors to atrial fibrillation.
- 3-D Electroanatomical Mapping
- Intracardiac Ultrasound
- Ultrasound guidance for vascular access
Post ablation, I discussed today's findings and results with the patient's , Lary.
RECOMMENDATIONS:
- Observe in monitored bed.
- Maintain oral anticoagulation (he is on lifetime oral anticoagulation related to his venous thrombotic and thromboembolic disease).
- Office visit with Liane Mena NP has been arranged for January 18, 2025
- Continue cardiovascular care with Dr. Jb Lott.
- Strict compliance with CPAP therapy for his obstructive sleep apnea (I believe he has severe obstructive sleep apnea) as well as striving for routine aerobic exercise and improve dietary habits with an eye towards significant weight loss to help
manage his obesity.
- If he recurs with atrial arrhythmias I would then consider antiarrhythmic drug therapy. He has known coronary artery disease. His baseline ECG demonstrates a normal QT interval. I think he would be a good candidate for a type III antiarrhythmic
drug such as dofetilide. Given his young age would prefer to avoid long-term exposure to amiodarone.
Copy to:
Dr Anton Brooks
Dr Jb Lott
--- NOTE | 2024-10-11 15:49 | PTCARENOTE ---
Pt transferred to PACU via stretcher with Dr Murphy, report handed off to DIRECTOR EPIDEMIOLOGY.
[2024-10-11] MEDS: DUONEB 3 ML INH (16:10)
--- NOTE | 2024-10-11 17:39 | W.PN.UPDATE ---
Update Note
Progress Note Update
Post ablation patient with mild hypoxia treated with BiPap (has h/o severe SHAYY) and CXR c/w atelectasis, no CHF.
With anesthesia assistance, ulises treat with Bipap acutely and then he will use his home CPAP tonight.
[2024-10-11] MEDS: CRESTOR 20 MG PO (20:06)
[2024-10-11] MEDS: ELIQUIS 5 MG PO (20:06)
[2024-10-11] MEDS: TRUSOPT 2% OPHTHALMIC SOLUTION 1 DROP OPHTH (20:07)
[2024-10-11] MEDS: TIMOPTIC 0.5% OPHTHALMIC SOLUTION 1 DROP OPHTH (20:07)
[2024-10-11] MEDS: INSPRA 25 MG PO (22:37)
[2024-10-11] MEDS: XALATAN OPHTHALMIC SOLUTION 1 DROP BOTH EYES (22:37)
--- NOTE | 2024-10-12 00:39 | PTCARENOTE ---
Received pt at change of shift resting in bed. Figure 8 sutures clipped with lili RN @[phone]. Dressing applied and is C.D.I. no bleeding or hematoma noted at this time. pt denies any Cp or SOB at this time. pt on 2L O2, sating 94%. SR with 1st
degree AVB on tele, HR 60's-80's. Tele alarmed Afib, EKG obtained and resulted as SR with 2nd degree type I AVB. HR 71, BP 136/94. Dr. Velasquez made aware, sent EKG result, no new orders at this time. Rodriguez care provided and pt educated that rodriguez
catheter to be removed in AM, pt verbalizes understanding. pt OOB in room w/ assistance of RN. Encouraged pt to call RN with any questions/concerns. Call cowan within reach.
[2024-10-12 02:25] VITALS: BP 123/91
[2024-10-12 03:11] LABS: Hematocrit 37.5 % (39.0-52.0); Hemoglobin 13.0 g/dL (13.0-18.0); Mean Corp Hgb Conc. 34.7 g/dL (33.0-37.0); Mean Corpuscular Volume 81.3 fL (80.0-94.0); Platelet Count 211 10^3/uL (130-400); Red Cell Dist. Width 14.8 % (11.5-14.5)
--- NOTE | 2024-10-12 03:24 | PTCARENOTE ---
tele alarmed 6-beat run of VT. pt states he felt 'two thumps' in his chest. CVPA made aware. AM labs obtained and sent. No further orders at this time.
[2024-10-12 03:32] LABS: Blood Urea Nitrogen 17 mg/dl (9-20); Calcium 8.7 mg/dl (8.4-10.2); Carbon Dioxide 21 mmol/L (22-30); Chloride 106 mmol/L (98-107); Estimated Creatinine Clearance 95 ml/min; Glucose 116 mg/dl (70-99); Magnesium 1.8 mg/dl (1.6-2.3); Potassium 4.0 mmol/L (3.5-5.1); Sodium 137 mmol/L (135-145); eGFR > 60.00
[2024-10-12] MEDS: MAGNESIUM SULFATE 50 IV (03:46)
[2024-10-12 06:00] VITALS: BMI 31.7
[2024-10-12 07:10] VITALS: BP 137/96
[2024-10-12] MEDS: NORVASC 5 MG PO (08:40)
[2024-10-12] MEDS: ELIQUIS 5 MG PO (08:40)
[2024-10-12] MEDS: PLAVIX 75 MG PO (08:41)
[2024-10-12] MEDS: BENICAR 40 MG PO (08:41)
[2024-10-12] MEDS: TRUSOPT 2% OPHTHALMIC SOLUTION 1 DROP OPHTH (08:42)
[2024-10-12] MEDS: TIMOPTIC 0.5% OPHTHALMIC SOLUTION 1 DROP OPHTH (08:42)
--- NOTE | 2024-10-12 09:12 | W.PN.CARDCBS ---
Addendum entered and electronically signed by Adrian River MD 10/12/24 15:55:
Patient seen, interviewed and examined by me.
Well-appearing, no acute distress
Regular rate and rhythm with normal S1 and S2, no S3 no S4. There is a grade 1/6 apical holosystolic murmur and no rubs. PMI is normally placed.
Lungs are clear to auscultation bilaterally without wheezes rales or rhonchi.
Abdomen soft nontender nondistended with normoactive bowel sounds
Extremities show trace pretibial edema bilaterally no clubbing or cyanosis.
Neurologic exam is grossly nonfocal.
He underwent pulmonary venous isolation yesterday October 11, 2024. Complex procedure due to his complex left atrial anatomy with 2 independent superior veins, left superior and left inferior as well as a common antrum into the inferior veins.
This was further complicated by finding of interrupted inferior vena cava which prompted superior approach to PVI. During mapping it is found that he has marked left atrial scarring. Pulsed electric field energy using the sphere 9 catheter was
delivered to electrically isolate the pulmonary veins, the posterior wall of the left atrium and the ligament of Jayesh.
He has been maintaining sinus rhythm. Adequate, not bradycardic heart rates.
Post procedure he he had significant atelectasis noted on chest x-ray and some transient hypoxia successfully treated with BiPAP therapy. Of note he has severe obstructive sleep apnea and uses CPAP at home.
Overnight hypoxia has resolved and he describes feeling great.
At present unclear etiology to his marked atrial myopathy, could be from years of severe sleep apnea. There could be a yet undefined infiltrative disorder.
- Plan for outpatient cardiac MRI to evaluate for any underlying infiltrative disease which could explain his marked atrial myopathy
- Maintain oral anticoagulation
- Stable for discharge to home today.
All of his questions answered.
Addendum entered and electronically signed by ALBERTO Lanier 10/12/24 15:47:
His sats were 89-90 on RA with dry cough, amb pulse ox 88%, he was given 20mg iv lasix with improvement in sats to 94% RA and cough gone. He is also voiding w/o difficulty. He was asking about being on diuretic at d/c as he previously was on HCTZ
but Dr. Lott stopped it a few months ago and he was worried he was holding onto extra fluid. I told him now that he is in SR hopefully he will feel better with less dyspnea. If his SOB worsens he will reach out to Dr. Lott. He is stable for d/c
home.
Original Note:
Today's Communication / Plan
-
post ablation feels better
urinary retention, FC d/c @6am, DTV
OAC Eliquis
Wean O2 to RA, keep sats >92%
outpt Cardiac MRI to assess for myocardial fibrosis
Impression / Plan
-
Primary Care Provider: Dr Anton Brooks
Primary Site Superintendent: Dr Jb Lott
58 yo WM with symptomatic persistent atrial fibrillation and a complex medical history which includes essential hypertension, SHAYY, CAD, obesity and brain cancer with a prolonged hospital stay at time of his resection nearly a decade ago complicated
by deep venous thrombosis and pulmonary embolism having received IVC filter which was subsequently removed. He was taken to the electrophysiology laboratory August 23, 2024 for planned PVI, which was unable to be performed d/t RFV occlusion and LFV
tortuousities. It was decided to attempt PVI using superior approach and he presents today for PVI.
Impression:
Symptomatic persistent Atrial fibrillation
post PVI, PW, LOM ablation 10/11/24 via superior approach
occluded RFV and LFV extensive tortuousities
Acute Hypoxia post procedure
Urinary retention
CAD/STEMI PCI LAD 06/2024
HTN
HLD
GERD
SHAYY/CPAP
DVT/PE h/o IVC filter
Cr meningioma post excision 2019
Plan:
post ablation via left subcalvian and RIJ approach
there was marked left atrial myopathy on the voltage mapping and we will check cardiac MRI as outpt to assess for myocardial fibrosis
LA pressure 20 post procedure, gave 1 dose IV lasix with 1700cc IVF given intraprocedurally
post procedure with hypoxia, CXR with LLL atelectasis, required bipap then transitioned to CPAP o/n, wean O2 to RA, keep sats >92%
unable to void after lasix, rodriguez cath placed o/n (he has hx of urinary retention with anesthesia)
FC d/c'ed at 6am, DTV, will check PVR after void
OAC Eliquis (lifetime r/t his venous thrombotic and thromboembolic disease
HTN continue amlodipine, eplerenone, olmesartan
Activity restrictions reviewed
reviewed strict compliance with CPAP at home, and wt loss reinforced
- If he recurs with atrial arrhythmias I would then consider antiarrhythmic drug therapy. He has known coronary artery disease. His baseline ECG demonstrates a normal QT interval. I think he would be a good candidate for a type III antiarrhythmic
drug such as dofetilide. Given his young age would prefer to avoid long-term exposure to amiodarone.
f/u [employer] WORKDAY DIRECTOR in 3 mo
continue cardiac care with Dr. Lott
home later today if able to void
Progress Note - Site Superintendent
Subjective
Date of Service: October 12, 2024
denies cp, sob
Objective
Labs:
10/12/24 02:51
10/12/24 02:51
Labs
Hgb 13.0 g/dL (13.0-18.0) 10/12/24 02:51
Hct 37.5 % (39.0-52.0) L 10/12/24 02:51
Plt Count 211 10^3/uL (130-400) 10/12/24 02:51
PT 17.3 Sec (11.4-14.6) H 10/02/24 08:29
INR 1.39 10/02/24 08:29
Sodium 137 mmol/L (135-145) 10/12/24 02:51
Potassium 4.0 mmol/L (3.5-5.1) 10/12/24 02:51
BUN 17 mg/dl (9-20) 10/12/24 02:51
Creatinine 1.1 mg/dL (0.7-1.3) 10/12/24 02:51
Glucose 116 mg/dl (70-99) H 10/12/24 02:51
Vital Signs and I&O:
Vital Signs
Temp Pulse Resp BP Pulse Ox
98.1 F 75 17 137/96 89
10/12/24 07:08 10/12/24 07:10 10/12/24 07:08 10/12/24 07:10 10/12/24 07:10
Vital Signs
Temp Pulse Resp BP Pulse Ox
98.1 F 75 17 137/96 89
10/12/24 07:08 10/12/24 07:10 10/12/24 07:08 10/12/24 07:10 10/12/24 07:10
Intake & Output
10/10/24 10/11/24 10/12/24 10/13/24
06:59 06:59 06:59 06:59
Intake Total 480 / 480
Output Total 2175 / 2175
Balance -1695 / -1695
Physical Exam
Physical Exam
NAD, AOX3
S1, S2, RRR
Diminished b/l bases
SNTND bsx4
[facility] site c/d/i no HT, R IJ site c/d/i
--- NOTE | 2024-10-12 09:34 | PTCARENOTE ---
Patient resting in bed this morning, dressings right upper chest and right upper neck are dry and intact. Patient denies any pain or discomfort, seen by Dr. River. Hernandez removed by maintenance technician 2nd shift, patient is drinking fluids and is DTV.
--- NOTE | 2024-10-12 10:51 | CM ---
Chart reviewed. Patient is independent of ADLS, lives with his in a 2 STH, 0 SOSA, 0 DME. Plan is for the patient to return home.
[2024-10-12 11:13] VITALS: BP 142/99
[2024-10-12 11:28] VITALS: O2SAT 88; O2SAT 90
[2024-10-12] MEDS: LASIX 20 MG IV (11:44)
--- NOTE | 2024-10-12 13:12 | W.DS.TRANS ---
DC Summary - Fish Hatchery Assistant
-
Discharge Instructions:
Discharge Diagnosis/Procedures Atrial fibrillation post ablation
Diet Low Cholesterol
Driving Restrictions No driving for 24 hours
Others Tests Cardiac MRI, please call to schedule [phone]
[phone]
Instructions:
Stand-Alone Forms: DC Instructions- Cath/EP Lab
Changes to Home Medications: No
Discharge Medications:
DC Medications w/original date entered in [employer]
olmesartan 40 mg tablet 40 mg PO DAILY Blood Pressure 04/11/19
tadalafil 10 mg tablet 10 mg PO DAILYPRN PRN ED 04/11/19
apixaban 5 mg tablet 5 mg PO BID Blood Clot Prevention/Tx 06/19/24
eplerenone 25 mg tablet 25 mg PO HS 06/19/24
latanoprostene bunod 0.024 % eye drops 1 drp BOTH EYES HS Eye Condition 06/19/24
amlodipine 5 mg tablet 5 mg PO DAILY #30 tabs 06/22/24
clopidogrel 75 mg tablet 75 mg PO DAILY #90 tabs 06/22/24
rosuvastatin 20 mg tablet 20 mg PO QPM #30 tabs 06/22/24
Balance Of Nature 1 cap PO DAILY Fruits and vegetables 08/23/24
Relief Factor 2 tab PO DAILY inflamation/joint pain 08/23/24
coQ10 (ubiquinol) 200 mg capsule 200 mg PO HS 08/23/24
turmeric 2 cap PO DAILY 09/27/24
dorzolamide 2 %-timolol 0.5 % (PF) eye drops 1 drp ophthalmic (eye) Q12H 10/02/24
Home Medication Changes
Pending Results: No
--- NOTE | 2024-10-12 14:26 | PTCARENOTE ---
Patient given lasix 20mg IV as ordered. Pulse ox on RA now 94% and patient feels better, coughing less. Seen by Jeffery Quintana NP and is ok for discharge. Reviewed discharge instructions with the patient and his and they state their understanding.
Patient discharged home, aware to make an appointment for cardiac MRI as an outpatient.
== END 2024-10-12 13:20 | disposition home or self-care (01) ==
LOC: CATH 08:20
PROVIDERS: Nurse Practitioner Adult Health; ATTENDING PHYSICIAN Internal Medicine Cardiovascular Disease; FAMILY PHYSICIAN Family Medicine; REFERRING PHYSICIAN Internal Medicine Interventional Cardiology
DX: I48.19 Other persistent atrial fibrillation (principal); I10 Essential (primary) hypertension; I25.2 Old myocardial infarction; Z79.01 Long term (current) use of anticoagulants; E66.9 Obesity, unspecified; E78.5 Hyperlipidemia, unspecified; G47.33 Obstructive sleep apnea (adult) (pediatric); H40.9 Unspecified glaucoma; I25.10 Atherosclerotic heart disease of native coronary artery without angina pectoris; H91.93 Unspecified hearing loss, bilateral; Z86.711 Personal history of pulmonary embolism; I44.1 Atrioventricular block, second degree; I49.8 Other specified cardiac arrhythmias; I82.413 Acute embolism and thrombosis of femoral vein, bilateral; J81.1 Chronic pulmonary edema; J98.11 Atelectasis; K21.9 Gastro-esophageal reflux disease without esophagitis; Z68.32 Body mass index [BMI] 32.0-32.9, adult; Z79.899 Other long term (current) drug therapy; Z79.02 Long term (current) use of antithrombotics/antiplatelets; Z95.5 Presence of coronary angioplasty implant and graft; Z91.048 Other nonmedicinal substance allergy status; Z86.718 Personal history of other venous thrombosis and embolism
CPT/HCPCS: 36005; C1733; C1894; C1731; C1769; C1766; 36415; 71045; 75820; 80048; 80053; 83735; 85025; 85027; 85347; 85610; 86850; 86900; 86901; 93005; 93656; 93657; 94640; 94660; Q9967

== ENCOUNTER 2024-11-14 08:22 | Inpatient (IN) | payer OTHER, SELFPAY ==
--- NOTE | 2024-11-07 09:42 | HPS.HSE ---
Family Physician
-
Family Physician: Anton Brooks MD
Chief Complaint
-
Paroxysmal atrial fibrillation.
History of Present Illness
The patient is a 58 year old male presenting today for paroxysmal atrial fibrillation. The patient reports a history of palpitations, weakness, fatigue, and shortness of breath all associated with his arrhythmia. He did undergo pulmonary
vein isolation with Dr. Adrian River on 10/11/2024. He reports intermittent episodes of atrial fibrillation since his procedure but has remained overall asymptomatic. Pharmacological therapy has previously been limited due to marked bradycardia
at baseline. He does report compliance with Eliquis for oral anticoagulation due to a [id number] of 2. Per the recommendations of Dr. Adrian River, he will be admitted for Tikosyn loading for further arrhythmia management. This will likely be
followed by a cardioversion towards the end of his hospital stay. He denies any current complaints today such as chest pain, shortness of breath at rest, nausea, vomiting, diarrhea, lightheadedness, dizziness, cough, sore throat, or fever.
Medical History
Past Medical History
Past Medical History: Reports Other
Additional Past Medical History:
1. Paroxysmal atrial fibrillation, status post pulmonary vein isolation 10/11/2024; oral anticoagulation with Eliquis.
2. Sinus bradycardia, asymptomatic.
3. Hypertension.
4. Hyperlipidemia.
5. Coronary artery disease/STEMI, status post PCI with drug-eluting stent to mid LAD, 06/2024; OM disease medically treated. On Plavix.
6. Bilateral DVT/pulmonary embolism, provoked, 2019; previous IVC filter retrieved.
7. Occluded bilateral femoral veins with extensive tortuousities.
8. Mild-moderate mitral regurgitation.
9. Pulmonary nodules.
10. Obstructive sleep apnea, CPAP compliant.
11. GERD.
12. Brain meningioma, status post excision 2019.
13. Glaucoma.
14. Erectile dysfunction.
15. Post-operative urinary retention.
16. Hearing impairment bilaterally.
17. Obesity, BMI 33.2.
Past Surgical History: Reports Other
Additional Past Surgical History:
1. Pulmonary vein isolation.
2. PCI with drug-eluting stent to mid LAD.
3. Meningioma excision.
4. IVC filter placement.
5. IVC filter retrieval.
6. Bilateral cataract extraction.
Social History
Tobacco: Non-smoker
Alcohol: Other (He reports, on average, drinking 2 alcoholic beverages per month. )
Personal:
Living: Other (He lives in a 2 story home with his spouse and daughter.)
Family History
Family History: Not pertinent
Allergies / Home Medications
Allergy/Medication List:
HOME MEDICATIONS:
1. Amlodipine 2.5 mg p.o. daily.
2. Eliquis 5 mg p.o. twice a day.
3. Plavix 75 mg p.o. daily.
4. Eplerenone 25 mg p.o. at bedtime.
5. Latanoprostene ophthalmic solution 1 drop bilateral eyes at bedtime.
6. Olmesartan 40 mg p.o. daily.
7. Crestor 20 mg p.o. every evening.
8. Tadalafil 10 mg p.o. daily as needed.
9. Balance of Nature 1 capsule p.o. daily.
10. CoQ10 200 mg p.o. at bedtime.
11. Dorzolamide-timolol 1 drop ophthalmic bilateral eyes every 12 hours.
12. Relief factor 2 tablet p.o. daily.
13. Turmeric 2 capsules p.o. daily.
ALLERGIES: No known drug allergies.
Review of Systems
-
A 12 point ROS was completed and negative except as noted: Yes
Physical Exam
Vital Signs
Blood pressure 133/79. Heart rate 43. Respirations 18. Pulse ox 96% on room air.
Height 72.5 inches. Weight 112.6 kg. BMI 33.2.
Physical Exam
General: Well Developed, Well Nourished and No Apparent Distress
HEENT: NormoCephalic, Moist mucous membranes and Atraumatic
Respiratory: Clear
Cardiac: Irregular Rhythm
GI: Soft, Non Tender, Non Distended and Other (Obese. )
Musculoskeletal: No Edema and Normal Gait & Station
Skin: Warm and Dry
Neuro: AO x 3 and Nonfocal/grossly intact
Laboratory Results
-
EKG 11/07/2024: Atrial flutter with variable AV block. Left axis deviation. Inferior infarct, age undetermined. Cannot rule out anterior infarct, age undetermined.
Echocardiogram 06/19/2024: Normal biventricular size and systolic function without regional wall motion abnormality. Stage III diastolic dysfunction suggestive of restrictive filling pattern and increased filling pressures. Mild to moderate mitral
regurgitation. Estimated pulmonary artery pressure of 33 mmHg, assuming a right atrial pressure of 3 mmHg. No prior study available for comparison.
Impression/Plan
-
IMPRESSION/PLAN:
1. Paroxysmal atrial fibrillation: The patient will require an inpatient admission on 11/14/2024 due to the initiation of Tikosyn for further atrial fibrillation management. This will likely be followed by a cardioversion towards the end of his
hospital stay. The benefits and risks of this medication have been explained to the patient beforehand. The patient understands the risks associated with this medication and is willing to proceed.
[2024-11-14] VITALS (7 sets, daily range): BP systolic 124–147; BP diastolic 85–101; BMI 33.2
--- NOTE | 2024-11-14 09:00 | W.PN.CARDCBS ---
Addendum entered and electronically signed by Florentino Magallanes MD 11/14/24 11:06:
I saw and examined the patient.
The [employer] MAKER HAND or PA's note was reviewed and I agree with the note.
Comment: General: Well developed, well nourished in NAD.
Neck: Supple, no JVD, HJR, carotids +2 B/L, no bruits bilaterally.
Heart: Non displaced PMI, irregular, no murmurs, No S3, S4, no rubs.
Lungs: Clear to auscultation bilaterally, no wheeze, rhonchi, rubs bilaterally,
normal expiratory phase.
Abdomen: Normal bowel sounds, soft, non-tender, non-distended.
Extremities: No clubbing, cyanosis or edema bilaterally.
Neuro: Grossly nonfocal, awake, alert and oriented x3.
Clifford has a history of A-fib status post PVI October 2024 1 chronic Eliquis, CAD, hypertension, hyperlipidemia with statin intolerance, sleep apnea, PE/DVT status post IVC filter, intracranial meningioma. He presents with recurrent A-fib and
elective Tikosyn loading. He denies chest pain, short of breath or palpitations.
Rate currently is bradycardic. May be an issue in sinus rhythm. Will need to follow with Tikosyn loading and assess carefully after cardioversion.
Original Note:
Today's Communication / Plan
-
Start Tikosyn 500 mcg every 12 hours now based on CrCl 113 calculated by me
A-fib with slow ventricular response on telemetry, but historically has had improved HR in SR
CV on if fails to spontaneously convert
Impression / Plan
-
PCP: Anton Brooks MD
Cardiology: Jeffery Lott MD
EP: Dr. Adrian River
Impression:
Direct admission for Tikosyn load 11/14/2024
Persistent A-fib
s/p aborted PVI due to venous obstruction at right femoral vein 08/23/2024
s/p PVI via left axillary/subclavian venous access 10/11/2024
Chronic Eliquis OAC
CAD
80% proximal LPDA and 80% distal LAD by cath, managed medically 04/11/2019
s/p IWMI and tubular 60-70% stenosis of mid LAD, severe ostial OM4/LPDA s/p POBA alone OM 4/L PDA due to difficulty delivering stent 06/19/2024
3 mm [place] MAITE to the LAD and angioplasty alone of the distal circumflex 06/21/2024
HTN
HLD
h/o statin intolerance
SHAYY on CPAP
GERD
h/o PE/DVT s/p IVC filter
Intracranial meningioma s/p removal and XRT 2019
Echo 06/19/2024: EF 65-70%, mod cLVH, stage III diastolic dysfunction, mild to mod MR, mild TR, estimated PAP 33 mmHg
Plan:
-Patient presents to the hospital today for elective admission for Tikosyn load in the setting of recurrent and persistent A-fib. Patient was seen in the office by cardiology 06/27/2024 and then had attempted PVI 08/23/2024, but there was obstruction
in the right femoral vein. Patient returned to the EP lab and using access via the left axillary/subclavian vein he had successful EP study and PVI. At that time electroanatomical voltage mapping showed marked left atrial myopathy. Patient was
seen by his primary turn laster in the office last month and noted to have recurrent A-fib with slow ventricular response and his primary turn laster conferred with his EP and they decided on direct admission for Tikosyn loading.
-ECG reviewed by me is A-fib with slow ventricular response and QTc 439 ms 11/14/2024
-Patient is bradycardic with HR's down to 36 on my review of telemetry 11/14/2024. Patient and report improved HR following PVI and that he generally has a slow ventricular response when in atrial arrhythmia. Patient is not taking any AV dre
blockers.
-Patient is asymptomatic with slow ventricular response on telemetry, denies feeling lightheaded or dizzy. No syncope
-CrCl calculated by me is 113 on 11/14/2024. Patient was recommended Tikosyn 500 mcg every 12 hours, doses ordered by me 11/14/2024.
-Reviewed the plan for serial ECG monitoring to look for QT prolongation with patient and
-Patient has not missed any doses of his Eliquis 5 mg BID (age 58, Cre 1.1, wt 111 kg)
-If patient fails to spontaneously convert we will plan on CV on , 11/16/2024
-Patient had IWMI and POBA of OM 4/PDA lesion 06/19/2024 followed by return to Senior Principal Architect with 3 mm [place] MAITE to the LAD and angioplasty alone of the distal circumflex 06/21/2024. Patient remains on Plavix plus Eliquis.
-Outpatient dose of olmesartan 40 mg daily was changed to losartan 100 mg daily due to formulary
-Outpatient dose of eplerenone 25 mg daily has been continued
-Outpatient dose of amlodipine 2.5 mg daily has been continued
Progress Note - Caster Operator
Subjective
Date of Service: November 14, 2024
Feels well, denies feeling lightheaded or dizzy
Objective
Vital Signs and I&O:
Vital Signs
Temp Pulse Resp BP Pulse Ox
98.6 F 49 16 127/100 98
11/14/24 08:49 11/14/24 08:52 11/14/24 08:49 11/14/24 08:52 11/14/24 08:49
Vital Signs
Temp Pulse Resp BP Pulse Ox
98.6 F 49 16 127/100 98
11/14/24 08:49 11/14/24 08:52 11/14/24 08:49 11/14/24 08:52 11/14/24 08:49
Physical Exam
Physical Exam
GEN: AAOx3
LUNGS: RA. No audible wheeze
CV: Afib with slow VR on tele. Irreg irreg
ABD: ND
EXT: No edema B/L LE
NEURO: Gross non-focal
SKIN: No rash
[2024-11-14 09:43] LABS: Hematocrit 38.3 % (39.0-52.0); Hemoglobin 13.0 g/dL (13.0-18.0); Mean Corp Hgb Conc. 33.9 g/dL (33.0-37.0); Mean Corpuscular Volume 82.7 fL (80.0-94.0); Platelet Count 225 10^3/uL (130-400); Red Cell Dist. Width 14.9 % (11.5-14.5)
[2024-11-14 09:55] LABS: ALT (SGPT) 16 U/L (0-50); AST (SGOT) 25 U/L (17-59); Albumin 4.5 g/dl (3.5-5.0); Alkaline Phosphatase 44 U/L (38-126); Blood Urea Nitrogen 21 mg/dl (9-20); Calcium 8.9 mg/dl (8.4-10.2); Carbon Dioxide 20 mmol/L (22-30); Chloride 108 mmol/L (98-107); Estimated Creatinine Clearance 93 ml/min; Glucose 115 mg/dl (70-99); Magnesium 1.9 mg/dl (1.6-2.3); Potassium 3.7 mmol/L (3.5-5.1); Sodium 139 mmol/L (135-145); Total Protein 7.3 g/dl (6.3-8.2); eGFR > 60.00
--- NOTE | 2024-11-14 09:58 | PTCARENOTE ---
Received the patient as a direct admission. The patient times aaox3. Afib with a SVR is noted on the monitor with HRs fluctuating between 35-50s. He is asymptomatic. He has no complaints of sob, dizziness, or any discomfort. ECG completed. IV
inserted and labs were drawn. I oriented his to his room. His is at the bedside and his call cowan is within reach.
--- NOTE | 2024-11-14 10:31 | W.CARD.TIKOS ---
Initiate Tikosyn
-
I verify that the patient has not taken any verapamil (Isoptin/Calan), ketoconazole (Nizoral), cimetidine (Tagamet), trimethoprim (Trimpex), trimethoprim/sulfamethoxazole (Bactrim), megesterol (Megace), prochlorperazine (Compazine),
hydrochlorothiazide (HCTZ), dolutegravir (Tivicay) or any Class I or Class III anti-arrhythmic within the last three days
AND
I verify that the patient has not taken amiodarone within the last THREE months, or that the patient's amiodarone plasma concentration is <0.3 mcg/mL.
Creatinine 1.1 mg/dL (0.7-1.3) 11/14/24 09:26
Estimated Creat Clear 93 ml/min 11/14/24 09:26
CrCl 113 as calculated by me on 11/14/2024
Does patient have a Ventricular Conduction Abnormality: No
I have assessed the baseline QTc interval (using QT for heart rate less than 60 bpm) and deemed the patient is appropriate for Dofetilide therapy. I understand that Tikosyn is contraindicated if the QTc is >440msec (500msec in patients with
ventricular conduction abnormalities).
Baseline QTc (in msec): 439
Ordering Physician: Adrian River
--- NOTE | 2024-11-14 11:07 | CM ---
Chart reviewed. Patient is independent of ADLS, lives with his in a 2 STH, 0 SOSA, 0 DME. Plan is for the patient to return home. CM to follow
--- NOTE | 2024-11-14 11:08 | CM ---
Pricing on Dofetilide 500mcq BID is covered under the patient's prescription plan $20 for a month supply. CM to confirm availability at discharge. Patient will need a 3 day supply at discharge.
[2024-11-14] MEDS: TIKOSYN 500 MCG PO (11:21)
--- NOTE | 2024-11-14 13:32 | PTCARENOTE ---
1st dose post Tikosyn is 526, Pa notified
--- NOTE | 2024-11-14 14:54 | W.PN.UPDATE ---
Update Note
Progress Note Update
ECG 2 hours after initial dose of Tikosyn 500 mcg this morning was reviewed by me and the QTc has increased from 439 ms up to 526 ms. Will decrease Tikosyn to 250 mcg every 12 hours starting second dose that is scheduled for tonight.
[2024-11-14] MEDS: CRESTOR 20 MG PO (17:28)
[2024-11-14] MEDS: ELIQUIS 5 MG PO (19:45)
--- NOTE | 2024-11-14 20:02 | PTCARENOTE ---
Resumed care of pt AAOx3. Pt relaxing in bed with family at bedside watching movie. HR in the 40's in AFib with prolonged QT on the monitor. POX 95% on RA. lungs clear. + bowel, round obese abd. Palpable peripheral pulses. Left wrist int capped. Pt
denies any complaints at this time. Plan of care reviewed. Call cowan in reach. Will continue to monitor.
[2024-11-14] MEDS: TIKOSYN 250 MCG PO (22:46)
[2024-11-14] MEDS: INSPRA 25 MG PO (22:46)
[2024-11-15] VITALS (14 sets, daily range): BP systolic 120–159; BP diastolic 81–106; BMI 32.7
--- NOTE | 2024-11-15 01:10 | PTCARENOTE ---
2nd dose of Tikosyn administered as ordered followed by EKG per protocol. EKG obtained now showring Sinus Rhythm with 2nd degree AV block Mobitz type 1. Pt denies any complaints. Pt resting comfortably. Vital signs stable. will continue to monitor.
[2024-11-15 04:18] LABS: Hematocrit 35.9 % (39.0-52.0); Hemoglobin 12.3 g/dL (13.0-18.0); Mean Corp Hgb Conc. 34.3 g/dL (33.0-37.0); Mean Corpuscular Volume 82.9 fL (80.0-94.0); Platelet Count 195 10^3/uL (130-400); Red Cell Dist. Width 14.9 % (11.5-14.5)
[2024-11-15 05:16] LABS: Blood Urea Nitrogen 17 mg/dl (9-20); Calcium 8.6 mg/dl (8.4-10.2); Carbon Dioxide 20 mmol/L (22-30); Chloride 108 mmol/L (98-107); Estimated Creatinine Clearance 85 ml/min; Glucose 97 mg/dl (70-99); Potassium 3.7 mmol/L (3.5-5.1); Sodium 138 mmol/L (135-145); eGFR > 60.00
[2024-11-15] MEDS: ELIQUIS 5 MG PO (07:19)
[2024-11-15] MEDS: PLAVIX 75 MG PO (07:19)
[2024-11-15] MEDS: COZAAR 100 MG PO (07:21)
[2024-11-15] MEDS: NORVASC 2.5 MG PO (07:21)
--- NOTE | 2024-11-15 09:26 | PTCARENOTE ---
Patient received by paper coating supervisor nurse, Pt AAOx4, No N/V/D, no CP/PALP. Patient worried about QTc levels and EKG post Tikosyn administration last night. RN went over results in great length. Patient awaiting cardiology to clarify questions on NS with
HB diagnose on HS EKG. Patient very appreciative. Morning Meds administered, VS taken, and morning breakfast called in. All questions and concerns answered.
[2024-11-15] MEDS: TIKOSYN 500 MCG PO (10:19)
--- NOTE | 2024-11-15 10:44 | CM ---
Chart reviewed. Patient is independent of ADLS, lives with his in a 2 STH, 0 SOSA, 0 DME. Patient is on dose 4 of Dofetilide. Patient will need confirmation of availability at discharge along with the 3 day supply. Plan is for the patient
to return home. CM to follow
--- NOTE | 2024-11-15 12:10 | W.PN.CARDCBS ---
Addendum entered and electronically signed by Iraj Velasquez DO 11/15/24 17:17:
I saw and examined the patient 9:45 AM.
The Probation Counselor's note was reviewed and I agree with the note.
Comment:
Plan:
With progressive heart block including second-degree heart block type I and later junctional rhythm and after discussion with electrophysiology, patient was a pacemaker candidate and to undergo permanent pacemaker today.
Continue Tikosyn loading
With recent stenting earlier this year patient remains on Plavix and Eliquis.
Original Note:
Today's Communication / Plan
-
PPM today and then continue with Tikosyn loading
Impression / Plan
-
PCP: Anton Brooks MD
Cardiology: Jeffery Lott MD
EP: Dr. Adrian River
Impression:
Direct admission for Tikosyn load 11/14/2024
Persistent A-fib
s/p aborted PVI due to venous obstruction at right femoral vein 08/23/2024
s/p PVI via left axillary/subclavian venous access 10/11/2024
Chronic Eliquis OAC
CAD
80% proximal LPDA and 80% distal LAD by cath, managed medically 04/11/2019
s/p IWMI and tubular 60-70% stenosis of mid LAD, severe ostial OM4/LPDA s/p POBA alone OM 4/L PDA due to difficulty delivering stent 06/19/2024
3 mm [place] MAITE to the LAD and angioplasty alone of the distal circumflex 06/21/2024
HTN
HLD
h/o statin intolerance
SHAYY on CPAP
GERD
h/o PE/DVT s/p IVC filter
Intracranial meningioma s/p removal and XRT 2019
Echo 06/19/2024: EF 65-70%, mod cLVH, stage III diastolic dysfunction, mild to mod MR, mild TR, estimated PAP 33 mmHg
Plan:
-Patient initially given Tikosyn 500 mcg as the first dose on Wednesday morning, but QTc increased from 439 ms up to 526 ms so Tikosyn dose was decreased to 250 mcg and was given as the second dose on Wednesday night. Patient then spontaneously
converted to SR. QTc looked improved and so plan was for Tikosyn dose to be increased back to 500 mcg and this dose was given on Wednesday. Patient then noted to have junctional bradycardia and case was reviewed with EP and patient's
primary stem threshing machine operator. Clinical decision was made to proceed with PPM placement with his primary stem threshing machine operator 11/15/2024 after which we will continue with Tikosyn loading.
-Coordinated with EP, primary stem threshing machine operator, nurse and patient to make plan for a total of 51 minutes on 11/15/2024
-Patient has not missed any doses of his Eliquis 5 mg BID (age 58, Cre 1.1, wt 111 kg)
-Patient had IWMI and POBA of OM 4/PDA lesion 06/19/2024 followed by return to Arc Air Operator with 3 mm [place] MAITE to the LAD and angioplasty alone of the distal circumflex 06/21/2024. Patient remains on Plavix plus Eliquis.
-Outpatient dose of olmesartan 40 mg daily was changed to losartan 100 mg daily due to formulary
-Outpatient dose of eplerenone 25 mg daily has been continued
-Outpatient dose of amlodipine 2.5 mg daily has been continued
HPI: Patient presents to the hospital today for elective admission for Tikosyn load in the setting of recurrent and persistent A-fib. Patient was seen in the office by cardiology 06/27/2024 and then had attempted PVI 08/23/2024, but there was
obstruction in the right femoral vein. Patient returned to the EP lab and using access via the left axillary/subclavian vein he had successful EP study and PVI. At that time electroanatomical voltage mapping showed marked left atrial myopathy.
Patient was seen by his primary stem threshing machine operator in the office last month and noted to have recurrent A-fib with slow ventricular response and his primary stem threshing machine operator conferred with his EP and they decided on direct admission for Tikosyn loading.
Progress Note - Marking Room Supervisor
Subjective
Date of Service: November 15, 2024
He feels well, he denies feeling lightheaded or dizzy
Objective
Labs:
11/15/24 03:55
11/15/24 03:55
Labs
Hgb 12.3 g/dL (13.0-18.0) L 11/15/24 03:55
Hct 35.9 % (39.0-52.0) L 11/15/24 03:55
Plt Count 195 10^3/uL (130-400) 11/15/24 03:55
Sodium 138 mmol/L (135-145) 11/15/24 03:55
Potassium 3.7 mmol/L (3.5-5.1) 11/15/24 03:55
BUN 17 mg/dl (9-20) 11/15/24 03:55
Creatinine 1.2 mg/dL (0.7-1.3) 11/15/24 03:55
Glucose 97 mg/dl (70-99) 11/15/24 03:55
Vital Signs and I&O:
Vital Signs
Temp Pulse Resp BP Pulse Ox
97.9 F 61 18 143/103 97
11/15/24 07:25 11/15/24 07:25 11/15/24 07:25 11/15/24 07:25 11/15/24 03:56
Vital Signs
Temp Pulse Resp BP Pulse Ox
97.9 F 61 18 143/103 97
11/15/24 07:25 11/15/24 07:25 11/15/24 07:25 11/15/24 07:25 11/15/24 03:56
Physical Exam
Physical Exam
GEN: AAOx3
LUNGS: RA. No audible wheeze
CV: Afib with slow VR on tele.
--- NOTE | 2024-11-15 16:33 | PTCARENOTE ---
Pt received post pacemaker, Pt AAOx3, dressing CDI on left chest wall, no immobilizer in place. Patient at bedside. Patient denies any discomfort at this time.
--- NOTE | 2024-11-15 16:47 | ITS.CL.PACE ---
Linen Clerk - Pacemaker Implant
Pacemaker Implant
Procedure Report:
PACEMAKER IMPLANT REPORT
Primary Care Physician: Dr. Anton Brooks
Primary Accounting Coordinator: Myself
Date of Procedure: November 15, 2024
Procedure:
1: Dual chamber pacemaker implantation with fluoroscopic guidance
Indication/Diagnosis:
1: Non-reversible symptomatic bradycardia due to: sinus node dysfunction and intermittent advanced AV block.
History: The patient is a 58-year-old man with a complex past medical history including recent A-fib ablation with recurrent A-fib. He is currently undergoing a Tikosyn load and is back in intermittent sinus rhythm alternating with junctional
rhythm. He has had profound sinus bradycardia as well as bradycardia and atrial fibrillation as well. He is referred for dual-chamber pacemaker placement for sick sinus syndrome and to facilitate further loading with Tikosyn.
Antibiotic: Ancef 2 g IV
Sedation: Conscious sedation as per anesthesia staff
Description of Procedure: After informed consent was obtained, 'time out' was called and confirmed, the patient was prepped and draped in a sterile fashion. Lidocaine with epinephrine was used for local anesthesia. Central venous access was
obtained via subclavian venopuncture after a venogram from the left arm confirmed subclavian patency. An incision was made along the left chest and a pre-pectoral pocket was formed. Using a Seldinger technique and peel-away sheaths, the pacing
leads were placed under fluoroscopic guidance. Attempts were made to place the ventricular lead and a left bundle pacing area however I could not easily locate the pacing system and ultimately placed lead in the basal septum. Once testing (see
below) showed adequate and stable function, the leads were secured using the suture sleeves. The pocket was liberally irrigated with antibiotic solution. The leads were connected to the generator header and the leads and generator were placed
within the pocket. Fluoroscopy confirmed stable lead position. The pocket was closed in the typical fashion.
IMPLANTS:
Company: [employer], [place] [id number], SN: [id number] left Pectoral
RA: Medtronic model 5076�52, SN: [id number], RAA
RV: Medtronic model 3830�69, SN: [id number], RV basal/mid septum
DEVICE TESTING:
Sensing: RA 1.6 mV, RV 5.9 mV
Capture: RA 0.75 V@0.4ms, RV 0.5 V@0.4ms
Ohms: RA 494, RV 760
FINAL PROGRAMMING
Ron Pacing: AAIR�DDDR 60-130 ppm
Complications: None.
Fluoroscopy Time (min): 20
Radiation Dose (mGy): 73
DAP (Gy.cm2): 10
CONCLUSIONS:
1: Successful implant of dual chamber permanent pacemaker
RECOMMENDATIONS:
1. Routine post-op care (tele, CXR).
2. In-Office wound check within 7 days.
3. Office interrogation within 4 weeks.
[2024-11-15] MEDS: CRESTOR 20 MG PO (17:36)
[2024-11-15] MEDS: TYLENOL 650 MG PO (19:48)
[2024-11-15] MEDS: INSPRA 25 MG PO (22:02)
[2024-11-15] MEDS: ANCEF 5 IV (22:02)
[2024-11-16] VITALS (7 sets, daily range): BP systolic 145–170; BP diastolic 95–111
--- NOTE | 2024-11-16 00:34 | PTCARENOTE ---
Dose # [address] Magallanes - QTc on post pacemaker EKG 589 ms (11/15 @ 1653). Also - CXR results inconclusive regarding lead placement. TAL Gray, notified. Vitals are stable, no complaints of SOB, pulse ox 96% RA, pt. is V-pacing
in the 60's. TBD by cardiology in AM if XRY to be repeated. Left chest PPM dressing CDI without drainage or hematoma. Medicated with Tylenol for mild incisional pain with adequate results obtained. Pt. resting quietly.
[2024-11-16] MEDS: TYLENOL 650 MG PO ×3 (03:39→18:10)
[2024-11-16 04:20] LABS: Hematocrit 37.8 % (39.0-52.0); Hemoglobin 12.7 g/dL (13.0-18.0); Mean Corp Hgb Conc. 33.6 g/dL (33.0-37.0); Mean Corpuscular Volume 82.7 fL (80.0-94.0); Platelet Count 216 10^3/uL (130-400); Red Cell Dist. Width 15.1 % (11.5-14.5)
[2024-11-16 04:43] LABS: Blood Urea Nitrogen 13 mg/dl (9-20); Calcium 8.7 mg/dl (8.4-10.2); Carbon Dioxide 19 mmol/L (22-30); Chloride 110 mmol/L (98-107); Estimated Creatinine Clearance 92 ml/min; Glucose 93 mg/dl (70-99); Potassium 3.6 mmol/L (3.5-5.1); Sodium 139 mmol/L (135-145); eGFR > 60.00
[2024-11-16] MEDS: ANCEF 5 IV (06:06)
[2024-11-16] MEDS: KCL 40 MEQ PO (08:20)
[2024-11-16] MEDS: TIKOSYN 500 MCG PO ×2 (08:21→16:09)
[2024-11-16] MEDS: ELIQUIS 5 MG PO (08:21)
[2024-11-16] MEDS: COZAAR 100 MG PO (08:21)
[2024-11-16] MEDS: PLAVIX 75 MG PO (08:21)
[2024-11-16] MEDS: NORVASC 2.5 MG PO ×2 (08:21→11:02)
--- NOTE | 2024-11-16 09:20 | W.PN.CARDCBS ---
Addendum entered and electronically signed by Adrian River MD 11/16/24 11:56:
Patient seen, interviewed and examined by me.
Well-appearing, no acute distress
Regular rate and rhythm with normal S1 and S2, no S3 no S4. There is a grade 1/6 apical holosystolic murmur and no rubs. PMI is normally placed.
Lungs are clear to auscultation bilaterally without wheezes rales or rhonchi.
Left upper chest area of pacemaker implantation has dressing that is clean and dry.
Abdomen soft nontender nondistended with normoactive bowel sounds
Extremities show trace pretibial edema bilaterally no clubbing or cyanosis.
Neurologic exam is grossly nonfocal.
I personally reviewed the chest x-ray performed yesterday November 15, 2024. There is no pneumothorax. The right atrial lead is usually visualized. The right ventricular lead tip is difficult to visualize.
Telemetry finds consistent with right ventricular capture.
ECG finds sinus rhythm with atrial tracking and ventricular capture.
Corrected QT interval is approximately 515 ms, ventricular paced beat.
Continue pacing. Programming is MVP although he does have a high percentage of ventricular pacing.
Remains in sinus rhythm.
Continue dofetilide at 500 mcg twice daily. Fifth dose is the second dose today. Follow ECGs and if corrected QT interval stable patient can be discharged to home later today.
Patient follows closely with his primary mothercraft nurse, Dr. Jb Lott.
All of the patient's questions have been answered.
Original Note:
Today's Communication / Plan
-
Extra amlodipine 2.5 mg now for total of 5 mg this morning
Increase outpatient dose of amlodipine back to 5 mg daily which was his usual dose until his outpatient cardiology visit last week when he was hypotensive
PPM implant site looks stable to me and Eliquis 5 mg BID restarted this morning
Tikosyn Rx tubed to pharmacy for 3-day home supply and also E scribed home Rx to his outpatient pharmacy
Impression / Plan
-
PCP: Anton Brooks MD
Cardiology: Jeffery Lott MD
EP: Dr. Adrian River
Impression:
Direct admission for Tikosyn load 11/14/2024
Persistent A-fib
s/p aborted PVI due to venous obstruction at right femoral vein 08/23/2024
s/p PVI via left axillary/subclavian venous access 10/11/2024
Chronic Eliquis OAC
Junctional bradycardia
s/p Medtronic DC PPM by Dr. Lott 11/15/2024
CAD
80% proximal LPDA and 80% distal LAD by cath, managed medically 04/11/2019
s/p IWMI and tubular 60-70% stenosis of mid LAD, severe ostial OM4/LPDA s/p POBA alone OM 4/L PDA due to difficulty delivering stent 06/19/2024
3 mm [place] MAITE to the LAD and angioplasty alone of the distal circumflex 06/21/2024
HTN
HLD
h/o statin intolerance
SHAYY on CPAP
GERD
h/o PE/DVT s/p IVC filter
Intracranial meningioma s/p removal and XRT 2019
Echo 06/19/2024: EF 65-70%, mod cLVH, stage III diastolic dysfunction, mild to mod MR, mild TR, estimated PAP 33 mmHg
Plan:
-Patient initially given Tikosyn 500 mcg as the first dose on Wednesday, but QTc increased from 439 ms up to 526 ms so Tikosyn dose was decreased to 250 mcg and was given as the second dose on Wednesday.
-Patient then spontaneously converted to SR. QTc looked improved and Tikosyn dose increased to 500 mcg on Wednesday
-Patient then noted to have junctional bradycardia on ECG and had Medtronic DC PPM implanted by his primary mothercraft nurse on 11/15/2024
-Tikosyn dose held on Wednesday due to possible prolonged QT. ECG repeated morning and QTc visually is about 490 and QTc up to 550 acceptable and paced rhythm so Tikosyn restarted at 500 mcg morning.
-5th dose of Tikosyn 500 mcg scheduled for evening and patient can be discharged to home thereafter and he is in agreement with this plan
-Potassium is 3.6 on my review of labs 11/16/2024 and KCl 40 mEq x 1 now ordered by me
-Left ACW implant site inspected by me on 11/16/2024 and pocket is stable with less than dime size drainage on gauze dressing, no hematoma or visible ecchymosis.
-Eliquis 5 mg BID (age 58, Cre 1.1, wt 111 kg) was held Wednesday night, but resumed morning
-Patient had IWMI and POBA of OM 4/PDA lesion 06/19/2024 followed by return to [employer] with 3 mm [place] MAITE to the LAD and angioplasty alone of the distal circumflex 06/21/2024. Patient remains on Plavix plus Eliquis.
-Outpatient dose of olmesartan 40 mg daily was changed to losartan 100 mg daily due to formulary
-Outpatient dose of eplerenone 25 mg daily has been continued
-Patient was previously taking amlodipine 5 mg daily, but when he saw Dr. Lott in the office last week he was hypotensive and the dose was decreased to 2.5 mg daily. Patient has been consistently HTN this admission and so we will increase
amlodipine back to 5 mg daily. Extra amlodipine 2.5 mg PO x 1 now for a total of 5 mg on 11/16/2024 AM has been ordered by me.
-Anticipate discharge to home 11/16/2024 evening following his 5th dose of Tikosyn
HPI: Patient presents to the hospital today for elective admission for Tikosyn load in the setting of recurrent and persistent A-fib. Patient was seen in the office by cardiology 06/27/2024 and then had attempted PVI 08/23/2024, but there was
obstruction in the right femoral vein. Patient returned to the EP lab and using access via the left axillary/subclavian vein he had successful EP study and PVI. At that time electroanatomical voltage mapping showed marked left atrial myopathy.
Patient was seen by his primary mothercraft nurse in the office last month and noted to have recurrent A-fib with slow ventricular response and his primary mothercraft nurse conferred with his EP and they decided on direct admission for Tikosyn loading.
Progress Note - Inventory Coordinator
Subjective
Date of Service: November 16, 2024
Feels well, denies pain
Objective
Labs:
11/16/24 03:27
11/16/24 03:27
Labs
Hgb 12.7 g/dL (13.0-18.0) L 11/16/24 03:27
Hct 37.8 % (39.0-52.0) L 11/16/24 03:27
Plt Count 216 10^3/uL (130-400) 11/16/24 03:27
Sodium 139 mmol/L (135-145) 11/16/24 03:27
Potassium 3.6 mmol/L (3.5-5.1) 11/16/24 03:27
BUN 13 mg/dl (9-20) 11/16/24 03:27
Creatinine 1.1 mg/dL (0.7-1.3) 11/16/24 03:27
Glucose 93 mg/dl (70-99) 11/16/24 03:27
Vital Signs and I&O:
Vital Signs
Temp Pulse Resp BP Pulse Ox
97.9 F 62 20 145/95 97
11/16/24 08:11 11/16/24 04:00 11/16/24 08:11 11/16/24 03:20 11/16/24 08:11
Vital Signs
Temp Pulse Resp BP Pulse Ox
97.9 F 62 20 145/95 97
11/16/24 08:11 11/16/24 04:00 11/16/24 08:11 11/16/24 03:20 11/16/24 08:11
Intake & Output
1011/15/24 11/16/24 11/17/24
06:59 06:59 06:59 06:59
Intake Total 480 / 480
Balance 480 / 480
Physical Exam
Physical Exam
GEN: AAOx3
LUNGS: RA. No audible wheeze
CV: V paced on telemetry with underlying SR.
--- NOTE | 2024-11-16 10:34 | PTCARENOTE ---
Assumed care of the pt @ 0700. Pt is AAOx3 V-Paced on the monitor VSS LCW Pacer site dressing c/d/i. 500 mg Tikosyn dose given [id number]. POC discussed with pt. Call cowan within reach.
--- NOTE | 2024-11-16 10:47 | W.DS.TRANS ---
DC Summary - Assessment Counselor
-
Discharge Instructions:
Discharge Diagnosis/Procedures Atrial fibrillation, Tikosyn loading and
Pacemaker implant
Diet Low Cholesterol
Activity Other activity
Driving Restrictions No driving for 1 week
Bathing Restrictions OK to Shower
Instructions:
Stand-Alone Forms: DC Inst - Implanted Device
Changes to Home Medications: Yes
Discharge Medications:
DC Medications w/original date entered in [employer]
olmesartan 40 mg tablet 40 mg PO DAILY Blood Pressure 04/11/19
tadalafil 10 mg tablet 10 mg PO DAILYPRN PRN ED 04/11/19
apixaban 5 mg tablet 5 mg PO BID Blood Clot Prevention/Tx 06/19/24
eplerenone 25 mg tablet 25 mg PO DAILY 06/19/24
latanoprostene bunod 0.024 % eye drops 1 drp BOTH EYES HS Eye Condition 06/19/24
rosuvastatin 20 mg tablet 20 mg PO QPM #30 tabs 06/22/24
Balance Of Nature 1 cap PO DAILY Fruits and vegetables 08/23/24
Relief Factor 2 tab PO DAILY inflamation/joint pain 08/23/24
coQ10 (ubiquinol) 200 mg capsule 200 mg PO HS 08/23/24
turmeric 2 cap PO DAILY 09/27/24
dorzolamide 2 %-timolol 0.5 % (PF) eye drops 1 drp ophthalmic (eye) Q12H 10/02/24
clopidogrel 75 mg tablet 75 mg PO DAILY 11/06/24
amlodipine 5 mg tablet 5 mg PO DAILY Blood pressure #30 tabs 11/16/24
dofetilide 500 mcg capsule (Tikosyn) 500 mcg PO Q12H Arrhythmia #60 caps 11/16/24
Home Medication Changes
New to Tikosyn
Amlodipine increased to 5 mg daily
Pending Results: No
--- NOTE | 2024-11-16 11:10 | CM ---
Chart reviewed. Patient is independent of ADLS, lives alone in a 2 STH, 1st level set up, 1 SOS[employer], 0 DME. Patient's daughter to stay with her for 2 weeks. Patient is interested in VN. Referral sent to [facility]. Plan is for the patient to return
[facility] with [facility].
--- NOTE | 2024-11-16 11:21 | CM ---
I called patient's [facility] and I confirmed they will have the Dofetilide in stock tomorrow. Patient to go home with the 3 day supply.
[2024-11-16] MEDS: CRESTOR 20 MG PO (16:09)
== END 2024-11-16 18:55 | disposition home or self-care (01) | DRG 244 ==
LOC: IVU 08:22
PROVIDERS: Internal Medicine Interventional Cardiology; Nurse Practitioner; Physician Assistant Medical; ADMITTING PHYSICIAN Internal Medicine Cardiovascular Disease; ATTENDING PHYSICIAN Internal Medicine Cardiovascular Disease; FAMILY PHYSICIAN Family Medicine
PROC: 0JH606Z Insertion of Pacemaker, Dual Chamber into Chest Subcutaneous Tissue and Fascia, Open Approach (ICD-10-PCS; 2024-11-15)
PROC: 02HK3JZ Insertion of Pacemaker Lead into Right Ventricle, Percutaneous Approach (ICD-10-PCS; 2024-11-15)
PROC: 02H63JZ Insertion of Pacemaker Lead into Right Atrium, Percutaneous Approach (ICD-10-PCS; 2024-11-15)
DX: I48.19 Other persistent atrial fibrillation (principal); I49.5 Sick sinus syndrome; I44.30 Unspecified atrioventricular block; Z86.018 Personal history of other benign neoplasm; I25.10 Atherosclerotic heart disease of native coronary artery without angina pectoris; I10 Essential (primary) hypertension; E78.5 Hyperlipidemia, unspecified; G47.33 Obstructive sleep apnea (adult) (pediatric); K21.9 Gastro-esophageal reflux disease without esophagitis; N52.9 Male erectile dysfunction, unspecified; H91.93 Unspecified hearing loss, bilateral; Z68.33 Body mass index [BMI] 33.0-33.9, adult; E66.9 Obesity, unspecified; I25.2 Old myocardial infarction; Z95.5 Presence of coronary angioplasty implant and graft; Z98.41 Cataract extraction status, right eye; Z98.42 Cataract extraction status, left eye
CPT/HCPCS: 33208; 71045; 80048; 80053; 83735; 85027; 93005; C1769; C1785; C1887; C1898